=== PATIENT | female | born 1950 | race African-American/Black ===

== ENCOUNTER 2021-08-22 10:45 | Inpatient (IN) | payer MEDICAID ==
[2021-08-21 20:00] VITALS: BP 78/54
[~2021-08-22] VITALS: Ht 160 cm; Wt 60.8 kg
[2021-08-22] VITALS (22 sets, daily range): BP systolic 78–109; BP diastolic 44–71
[~2021-08-22 10:45] MED LIST: AC10R PR; LEVVL SQ; MIDO10TA GT; MOM MT; MULT-230 GT; POTA-79 GT; TOPUD GT
[2021-08-22] MEDS ORDERED: SODIUM CHLORIDE 0.9% 1,000 ML IV ONE (11:00)
[2021-08-22] MEDS ORDERED: SODIUM CHLORIDE 0.9% 1000ML BAG (SEPSIS BOLUS) IV ONE (11:00)
[2021-08-22] MEDS ORDERED: VANCOMYCIN 1 G PREMIX 200 ML IV ONE (11:00)
[2021-08-22] MEDS ORDERED: PIPERACILLIN/TAZ 3.375G PREMIX 50 ML IV ONE (11:00)
[2021-08-22 11:20] LABS: CHLORIDE 128 mEq/L (98-107)
[2021-08-22 11:23] LABS: HEMATOCRIT. 45.1 % (36.0-48.0); HEMOGLOBIN. 14.6 g/dL (12.0-16.0); MEAN CORPUSCULAR HEMOGLOBIN 31.5 pg (28.0-32.0); MEAN CORPUSCULAR VOLUME 97.2 fL (81.0-99.0); MEAN PLATELET VOLUME 11.4 fl (7.4-10.4); PLATELET 178 x1000/uL (130-400); RED BLOOD CELL COUNT 4.64 mill/uL (4.2-5.4); RED CELL DISTRIBUTION WIDTH 14.9 % (11.6-14.6)
[2021-08-22] MEDS ORDERED: CALCIUM CHLORIDE 1GM/10ML SYR IV ONE (11:45)
[2021-08-22] MEDS ORDERED: ALBUTEROL (0.083%) 2.5MG/3ML NEB HHN ONE (11:45)
[2021-08-22] MEDS ORDERED: DEXTROSE 50% WATER 50ML SYRINGE IV ONE (11:45)
[2021-08-22] MEDS ORDERED: INSULIN REGULAR (HUMULIN R) 300UNITS/3ML VIAL IV ONE (11:45)
[2021-08-22] MEDS ORDERED: SODIUM BICARBONATE 8.4% 1 MEQ/ML 50ML SYR IV ONE (11:45)
[2021-08-22] MEDS ORDERED: ACETAMINOPHEN 650MG SUPP PR ONE (12:30)
[2021-08-22 12:36] LABS: PLATELET ESTIMATE NORMAL
[2021-08-22] MEDS ORDERED: FENTANYL CITRATE/PF 500 MCG in SODIUM CHLORIDE 0.9% 40 ML IV STA (12:40)
[2021-08-22] MEDS ORDERED: ETOMIDATE 2MG/ML 10ML VIAL IV ONE (12:45)
[2021-08-22] MEDS ORDERED: SUCCINYLCHOLINE CHLORIDE 200MG/10ML IV ONE (12:45)
[2021-08-22] MEDS ORDERED: MIDAZOLAM HCL 100 MG in DEXT 5% WATER 80 ML IV ONE (12:45)
[2021-08-22] MEDS ORDERED: FENTANYL CITRATE/PF 50MCG/ML 2ML VIAL IV ONE (12:45)
[2021-08-22 12:47] LABS: BG BASE EXCESS 2.8 mmol/L (-2.0-2.0); BG CARBOXYHEMOGLOBIN 0.3 % (0.5-1.5); BG DEOXYHEMOGLOBIN 2.1 % (0.0-5.0); BG FRACTION INSPIRED OXYGEN 100; BG HCO3 ACT 25.8 mmol/L (22.0-26.0); BG METHEMOGLOBIN 0.2 % (0.0-1.5); BG OXYGEN SATURATION 97.9 % (92.0-98.5); BG OXYHEMOGLOBIN 97.4 % (94.0-97.0); BG PCO2 34.1 mmHg (35.0-45.0); BG PH 7.496 (7.350-7.450); BG PO2 122.6 mmHg (75.0-100.0); BG SAMPLE SITE LEFT RADIAL; BG TOTAL HEMOGLOBIN 12.1 g/dL (12.0-18.0); BG VENT MODE MASK - NRB
[2021-08-22] MEDS ORDERED: MIDAZOLAM HCL 100 MG in SODIUM CHLORIDE 0.9% 80 ML IV ONE (13:00)
[2021-08-22] MEDS ORDERED: FENTANYL CITRATE 2,500 MCG in SODIUM CHLORIDE 0.9% 200 ML IV PRN (13:15)
[2021-08-22] MEDS ORDERED: MIDAZOLAM 100MG/100ML PMX 100 ML IV PRN (13:15)
[2021-08-22 14:55] LABS: INR 1.1; PROTHROMBIN TIME 11.3 sec (9.6-11.0)
[2021-08-22] MEDS ORDERED: PHENYLEPHRINE 50 MG in DEXT 5% WATER 245 ML IV PRN (15:15)
[2021-08-22] MEDS ORDERED: IPRATROPIUM/ALBUTEROL 0.5-3(2.5)MG/3ML NEB HHN PRN ×2 (16:00→17:30)
[2021-08-22] MEDS ORDERED: ACETAMINOPHEN 650MG/20.3ML UDC GT PRN ×2 (16:00)
[2021-08-22] MEDS ORDERED: ONDANSETRON HCL 4MG/2ML INJ IV PRN (16:00)
[2021-08-22] MEDS: PANTOPRAZOLE SODIUM 40 MG/VIAL IV SCH (16:13)
[2021-08-22] MEDS ORDERED: AMIKACIN SULFATE 500 MG in SODIUM CHLORIDE 0.9% 100 ML IV NR (17:00)
[2021-08-22 17:02] LABS: CHLORIDE 132 mEq/L (98-107)
[2021-08-22 17:04] LABS: CLARITY URINE CLOUDY (CLEAR); COLOR URINE DARK YELLOW (YELLOW); KETONES URINE TRACE (NEGATIVE); LEUKOCYTE ESTERASE URINE TRACE (NEGATIVE); NITRITE URINE NEGATIVE (NEGATIVE); OCCULT BLOOD URINE TRACE (NEGATIVE); PROTEIN URINE 1+ (NEGATIVE); SPECIFIC GRAVITY URINE 1.027 (1.005-1.030)
[2021-08-22 17:08] LABS: LDL CHOLESTEROL 45 mg/dL (5-100)
[2021-08-22 17:10] LABS: CREATINE KINASE 78 IU/L (26-192); HDL CHOLESTEROL 24 mg/dL (40-59)
[2021-08-22 17:10] LABS: BG BASE EXCESS -0.4 mmol/L (-2.0-2.0); BG CARBOXYHEMOGLOBIN 0.3 % (0.5-1.5); BG FRACTION INSPIRED OXYGEN 100; BG HCO3 ACT 20.8 mmol/L (22.0-26.0); BG METHEMOGLOBIN 0.4 % (0.0-1.5); BG OXYHEMOGLOBIN 98.3 % (94.0-97.0); BG PH 7.539 (7.350-7.450); BG PO2 242.7 mmHg (75.0-100.0); BG SAMPLE SITE RIGHT RADIAL; BG TOTAL HEMOGLOBIN 11.8 g/dL (12.0-18.0); BG VENT MODE VENT - AC
[2021-08-22 17:12] LABS: CREATINE KINASE MB FRACTION < 1.0 ng/mL (0.5-3.6)
[2021-08-22 17:26] LABS: *AMPHETAMINES SCREEN URINE NEGATIVE (NEGATIVE); *BARBITURATES SCREEN URINE NEGATIVE (NEGATIVE); *BENZODIAZEPINES SCREEN URINE NEGATIVE (NEGATIVE); *COCAINE SCREEN URINE NEGATIVE (NEGATIVE)
[2021-08-22 17:27] LABS: CANNABINOID URINE SCREEN NEGATIVE (NEGATIVE); METHADONE URINE SCREEN NEGATIVE (NEGATIVE); OPIATES URINE SCREEN NEGATIVE (NEGATIVE); PHENCYCLIDINE URINE SCREEN NEGATIVE (NEGATIVE)
[2021-08-22] MEDS ORDERED: MIDAZOLAM HCL 100 MG in SODIUM CHLORIDE 0.9% 80 ML IV PRN (17:30)
[2021-08-22] MEDS: MEROPENEM 500 MG in SODIUM CHLORIDE 0.9% 50 ML IV SCH (17:34)
[2021-08-22] MEDS ORDERED: VANCOMYCIN 750 MG PREMIX 150 ML IV SCH (20:00)
[2021-08-22] MEDS: SODIUM CHLORIDE 0.45% 1,000 ML IV SCH (20:06)
[2021-08-22] MEDS: IPRATROPIUM/ALBUTEROL 0.5-3(2.5)MG/3ML NEB HHN SCH (20:30)
[2021-08-22] MEDS ORDERED: PIPERACILLIN/TAZOBACTAM 3.375 G in DEXTROSE 5% WATER 50 ML IV SCH (22:00)
[2021-08-22] MEDS ORDERED: DEXTROSE 50% WATER 50ML SYRINGE IV PRN (23:45)
[2021-08-22] MEDS: BLOOD SUGAR DIAGNOSTIC STRIP TEST SCH (23:59)
[2021-08-22] MEDS: INSULIN LISPRO 100 UNITS/ML SUBCUT SCH (23:59)
[2021-08-23] VITALS (105 sets, daily range): BP systolic 77–125; BP diastolic 42–83
[2021-08-23] MEDS: IPRATROPIUM/ALBUTEROL 0.5-3(2.5)MG/3ML NEB HHN SCH ×4 (00:50→20:53)
[2021-08-23] MEDS: MEROPENEM 500 MG in SODIUM CHLORIDE 0.9% 50 ML IV SCH ×3 (02:45→17:30)
[2021-08-23] MEDS: PHENYLEPHRINE 50 MG in DEXT 5% WATER 245 ML IV PRN ×2 (02:45→15:27)
[2021-08-23] MEDS: SODIUM CHLORIDE 0.45% 1,000 ML IV SCH ×2 (05:35→15:28)
[2021-08-23] MEDS: INSULIN LISPRO 100 UNITS/ML SUBCUT SCH ×3 (05:36→17:30)
[2021-08-23] MEDS: BLOOD SUGAR DIAGNOSTIC STRIP TEST SCH ×3 (05:36→17:30)
[2021-08-23 05:57] LABS: BASOPHILS % 0.6 % (0.0-2.0); EOSINOPHILS % 1.5 % (0.0-5.0); HEMATOCRIT. 32.9 % (36.0-48.0); HEMOGLOBIN. 10.7 g/dL (12.0-16.0); MEAN CORPUSCULAR HEMOGLOBIN 31.5 pg (28.0-32.0); MEAN CORPUSCULAR VOLUME 97.4 fL (81.0-99.0); MONOCYTES % 2.2 % (2.0-8.0); NEUTROPHILS % 86.7 % (40.0-76.0); PLATELET 143 x1000/uL (130-400); RED BLOOD CELL COUNT 3.38 mill/uL (4.2-5.4)
[2021-08-23 06:00] LABS: CHLORIDE 132 mEq/L (98-107)
[2021-08-23] MEDS: PANTOPRAZOLE SODIUM 40 MG/VIAL IV SCH (08:48)
[2021-08-23 08:56] LABS: BG BASE EXCESS 2.4 mmol/L (-2.0-2.0); BG CARBOXYHEMOGLOBIN 0.3 % (0.5-1.5); BG DEOXYHEMOGLOBIN 2.5 % (0.0-5.0); BG HCO3 ACT 24.4 mmol/L (22.0-26.0); BG METHEMOGLOBIN 0.3 % (0.0-1.5); BG OXYGEN SATURATION 97.5 % (92.0-98.5); BG OXYHEMOGLOBIN 96.9 % (94.0-97.0); BG PCO2 29.2 mmHg (35.0-45.0); BG PO2 98.6 mmHg (75.0-100.0); BG SAMPLE SITE RIGHT RADIAL; BG TOTAL HEMOGLOBIN 10.8 g/dL (12.0-18.0); BG VENT MODE VENT - AC
[2021-08-23] MEDS ORDERED: POLYETHYLENE GLYCOL 3350 (17GM) 1 DOSE PACK PO NR (10:00)
[2021-08-23] MEDS ORDERED: BISACODYL 10MG SUPP PR PRN (10:00)
[2021-08-23] MEDS: VANCOMYCIN 750 MG PREMIX 150 ML IV SCH (12:24)
[2021-08-23] MEDS ORDERED: MORPHINE SULFATE 2 MG/ML CPJ (NOT FOR IM USE) IV PRN (16:30)
[2021-08-23] MEDS ORDERED: NOREPINEPHRINE 32 MG in DEXT 5% WATER 218 ML IV PRN (16:30)
[2021-08-23] MEDS ORDERED: NALOXONE HCL 0.4MG/ML VIAL IV PRN (16:45)
[2021-08-23] MEDS ORDERED: IOHEXOL-350 100 ML BOTTLE ONE (23:04)
[2021-08-24] VITALS (90 sets, daily range): BP systolic 85–144; BP diastolic 40–120
[2021-08-24] MEDS: IPRATROPIUM/ALBUTEROL 0.5-3(2.5)MG/3ML NEB HHN SCH ×4 (01:33→20:22)
[2021-08-24] MEDS: MEROPENEM 500 MG in SODIUM CHLORIDE 0.9% 50 ML IV SCH ×3 (01:34→17:12)
[2021-08-24] MEDS: PHENYLEPHRINE 50 MG in DEXT 5% WATER 245 ML IV PRN (02:03)
[2021-08-24] MEDS: SODIUM CHLORIDE 0.45% 1,000 ML IV SCH (04:23)
[2021-08-24] MEDS: BLOOD SUGAR DIAGNOSTIC STRIP TEST SCH ×4 (05:39→17:00)
[2021-08-24] MEDS: VANCOMYCIN 750 MG PREMIX 150 ML IV SCH ×2 (05:39→17:12)
[2021-08-24] MEDS: INSULIN LISPRO 100 UNITS/ML SUBCUT SCH ×4 (05:41→17:11)
[2021-08-24 05:56] LABS: BASOPHILS % 0.1 % (0.0-2.0); HEMATOCRIT. 28.1 % (36.0-48.0); HEMOGLOBIN. 9.2 g/dL (12.0-16.0); LYMPHOCYTES % 8.1 % (20.0-50.0); MEAN CORPUSCULAR HEMOGLOBIN 32.1 pg (28.0-32.0); MEAN CORPUSCULAR VOLUME 97.8 fL (81.0-99.0); MEAN PLATELET VOLUME 12.2 fl (7.4-10.4); NEUTROPHILS % 87.8 % (40.0-76.0); PLATELET 94 x1000/uL (130-400); RED BLOOD CELL COUNT 2.87 mill/uL (4.2-5.4); RED CELL DISTRIBUTION WIDTH 14.7 % (11.6-14.6)
[2021-08-24 06:02] LABS: CHLORIDE 119 mEq/L (98-107)
[2021-08-24 06:08] LABS: PHOSPHORUS 2.2 mg/dL (2.5-4.9)
[2021-08-24 06:11] LABS: VANCOMYCIN TROUGH 10.3 ug/mL (5.0-10.0)
[2021-08-24 08:49] LABS: BG BASE EXCESS 2.4 mmol/L (-2.0-2.0); BG CARBOXYHEMOGLOBIN 0.3 % (0.5-1.5); BG DEOXYHEMOGLOBIN 1.6 % (0.0-5.0); BG FRACTION INSPIRED OXYGEN 35; BG HCO3 ACT 25.3 mmol/L (22.0-26.0); BG METHEMOGLOBIN 0.1 % (0.0-1.5); BG OXYGEN SATURATION 98.4 % (92.0-98.5); BG PCO2 32.6 mmHg (35.0-45.0); BG PH 7.507 (7.350-7.450); BG PO2 140.8 mmHg (75.0-100.0); BG SAMPLE SITE LEFT RADIAL; BG TOTAL HEMOGLOBIN 9.8 g/dL (12.0-18.0); BG TOTAL RESPIRATORY RATE 15 b/min; BG VENT MODE VENT - AC
[2021-08-24] MEDS ORDERED: DEXTROSE 5% WATER 1,000 ML IV SCH (09:00)
[2021-08-24] MEDS: POLYETHYLENE GLYCOL 3350 (17GM) 1 DOSE PACK PO SCH (09:00)
[2021-08-24] MEDS ORDERED: POTASSIUM CHLORIDE INJ 60 MEQ in DEXT 5% WATER 500 ML IV SCH (09:00)
[2021-08-24] MEDS: ZINC SULFATE 220 MG ( 50 ) CAPSULE GT SCH (09:20)
[2021-08-24] MEDS: PANTOPRAZOLE SODIUM 40 MG/VIAL IV SCH (09:20)
[2021-08-24] MEDS: ASCORBIC ACID 500 MG TABLET GT SCH (09:20)
[2021-08-24] MEDS ORDERED: POTASSIUM PHOS,M-BASIC-D-BASIC 15 MMOL in DEXT 5% WATER 245 ML IV NR (10:30)
[2021-08-25] VITALS (45 sets, daily range): BP systolic 93–139; BP diastolic 43–77
[2021-08-25] MEDS: BLOOD SUGAR DIAGNOSTIC STRIP TEST SCH ×5 (00:20→23:50)
[2021-08-25] MEDS: IPRATROPIUM/ALBUTEROL 0.5-3(2.5)MG/3ML NEB HHN SCH ×4 (00:25→20:19)
[2021-08-25] MEDS: MEROPENEM 500 MG in SODIUM CHLORIDE 0.9% 50 ML IV SCH ×3 (03:20→17:22)
[2021-08-25] MEDS: INSULIN LISPRO 100 UNITS/ML SUBCUT SCH ×5 (05:49→23:50)
[2021-08-25] MEDS: VANCOMYCIN 750 MG PREMIX 150 ML IV SCH ×2 (05:49→18:43)
[2021-08-25 06:03] LABS: BASOPHILS % 0.2 % (0.0-2.0); CHLORIDE 112 mEq/L (98-107); EOSINOPHILS % 1.9 % (0.0-5.0); HEMATOCRIT. 26.1 % (36.0-48.0); HEMOGLOBIN. 8.8 g/dL (12.0-16.0); LYMPHOCYTES % 8.8 % (20.0-50.0); MEAN CORPUSCULAR HEMOGLOBIN 32.2 pg (28.0-32.0); MEAN PLATELET VOLUME 12.4 fl (7.4-10.4); MONOCYTES % 5.1 % (2.0-8.0); PLATELET 78 x1000/uL (130-400); RED BLOOD CELL COUNT 2.74 mill/uL (4.2-5.4); RED CELL DISTRIBUTION WIDTH 14.4 % (11.6-14.6)
[2021-08-25 08:06] LABS: BG BASE EXCESS 1.9 mmol/L (-2.0-2.0); BG CARBOXYHEMOGLOBIN 0.3 % (0.5-1.5); BG DEOXYHEMOGLOBIN 2.1 % (0.0-5.0); BG HCO3 ACT 24.9 mmol/L (22.0-26.0); BG OXYGEN SATURATION 97.9 % (92.0-98.5); BG OXYHEMOGLOBIN 97.6 % (94.0-97.0); BG PCO2 32.3 mmHg (35.0-45.0); BG PH 7.504 (7.350-7.450); BG PO2 108.1 mmHg (75.0-100.0); BG SAMPLE SITE LEFT RADIAL; BG TOTAL HEMOGLOBIN 9.3 g/dL (12.0-18.0); BG VENT MODE VENT - SIMV
[2021-08-25] MEDS: ASCORBIC ACID 500 MG TABLET GT SCH (09:20)
[2021-08-25] MEDS: PANTOPRAZOLE SODIUM 40 MG/VIAL IV SCH (09:20)
[2021-08-25] MEDS: POLYETHYLENE GLYCOL 3350 (17GM) 1 DOSE PACK PO SCH (09:20)
[2021-08-25] MEDS: ZINC SULFATE 220 MG ( 50 ) CAPSULE GT SCH (09:20)
[2021-08-25] MEDS ORDERED: POTASSIUM CHLORIDE INJ 40 MEQ in DEXT 5% WATER 250 ML IV ONE (09:45)
[2021-08-25 10:57] LABS: BG BASE EXCESS 1.4 mmol/L (-2.0-2.0); BG CARBOXYHEMOGLOBIN 0.1 % (0.5-1.5); BG DEOXYHEMOGLOBIN 5.4 % (0.0-5.0); BG HCO3 ACT 22.5 mmol/L (22.0-26.0); BG METHEMOGLOBIN 0.1 % (0.0-1.5); BG OXYGEN SATURATION 94.6 % (92.0-98.5); BG OXYHEMOGLOBIN 94.4 % (94.0-97.0); BG PH 7.556 (7.350-7.450); BG PO2 69.9 mmHg (75.0-100.0); BG SAMPLE SITE RIGHT RADIAL; BG TOTAL HEMOGLOBIN 12.2 g/dL (12.0-18.0); BG VENT MODE VENT - CPAP
[2021-08-25] MEDS: KCL 20MEQ/100ML PREMIX 100 ML IV SCH ×2 (11:51→14:20)
[2021-08-26] VITALS (27 sets, daily range): BP systolic 89–131; BP diastolic 45–79
[2021-08-26] MEDS: IPRATROPIUM/ALBUTEROL 0.5-3(2.5)MG/3ML NEB HHN SCH ×4 (00:31→20:23)
[2021-08-26] MEDS: MEROPENEM 500 MG in SODIUM CHLORIDE 0.9% 50 ML IV SCH ×3 (01:38→17:29)
[2021-08-26] MEDS: INSULIN LISPRO 100 UNITS/ML SUBCUT SCH ×3 (05:27→17:29)
[2021-08-26] MEDS: BLOOD SUGAR DIAGNOSTIC STRIP TEST SCH ×3 (05:27→17:29)
[2021-08-26] MEDS: VANCOMYCIN 750 MG PREMIX 150 ML IV SCH (05:27)
[2021-08-26 06:17] LABS: CHLORIDE 113 mEq/L (98-107)
[2021-08-26 06:29] LABS: PHOSPHORUS 2.7 mg/dL (2.5-4.9)
[2021-08-26] MEDS: ASCORBIC ACID 500 MG TABLET GT SCH (08:38)
[2021-08-26] MEDS: ZINC SULFATE 220 MG ( 50 ) CAPSULE GT SCH (08:38)
[2021-08-26] MEDS: POLYETHYLENE GLYCOL 3350 (17GM) 1 DOSE PACK PO SCH (08:39)
[2021-08-26] MEDS: PANTOPRAZOLE SODIUM 40 MG/VIAL IV SCH (08:39)
[2021-08-27] VITALS (13 sets, daily range): BP systolic 111–134; BP diastolic 64–78
[2021-08-27] MEDS: MEROPENEM 500 MG in SODIUM CHLORIDE 0.9% 50 ML IV SCH ×3 (01:22→17:22)
[2021-08-27] MEDS: IPRATROPIUM/ALBUTEROL 0.5-3(2.5)MG/3ML NEB HHN SCH ×3 (04:29→14:11)
[2021-08-27 06:57] LABS: CHLORIDE 110 mEq/L (98-107)
[2021-08-27] MEDS: INSULIN LISPRO 100 UNITS/ML SUBCUT SCH ×4 (07:00→17:23)
[2021-08-27] MEDS: BLOOD SUGAR DIAGNOSTIC STRIP TEST SCH ×4 (07:00→17:22)
[2021-08-27 07:08] LABS: HEMATOCRIT. 28.4 % (36.0-48.0); HEMOGLOBIN. 9.6 g/dL (12.0-16.0); MEAN CORPUSCULAR HEMOGLOBIN 32.2 pg (28.0-32.0); MEAN CORPUSCULAR VOLUME 94.7 fL (81.0-99.0); MEAN PLATELET VOLUME 10.4 fl (7.4-10.4); PLATELET 119 x1000/uL (130-400); RED CELL DISTRIBUTION WIDTH 14.2 % (11.6-14.6)
[2021-08-27] MEDS: ASCORBIC ACID 500 MG TABLET GT SCH (09:10)
[2021-08-27] MEDS: POLYETHYLENE GLYCOL 3350 (17GM) 1 DOSE PACK PO SCH (09:10)
[2021-08-27] MEDS: ZINC SULFATE 220 MG ( 50 ) CAPSULE GT SCH (09:10)
[2021-08-27] MEDS: PANTOPRAZOLE SODIUM 40 MG/VIAL IV SCH (09:10)
[2021-08-27 12:10] LABS: PLATELET ESTIMATE SLIGHTLY DECREASED
[2021-08-28] VITALS (10 sets, daily range): BP systolic 105–124; BP diastolic 61–79
[2021-08-28] MEDS: BLOOD SUGAR DIAGNOSTIC STRIP TEST SCH ×3 (00:30→12:00)
[2021-08-28] MEDS: IPRATROPIUM/ALBUTEROL 0.5-3(2.5)MG/3ML NEB HHN SCH ×3 (01:30→14:12)
[2021-08-28] MEDS: INSULIN LISPRO 100 UNITS/ML SUBCUT SCH ×3 (06:00→12:00)
[2021-08-28 06:47] LABS: CHLORIDE 107 mEq/L (98-107)
[2021-08-28 06:48] LABS: HEMATOCRIT. 31.3 % (36.0-48.0); HEMOGLOBIN. 10.3 g/dL (12.0-16.0); MEAN CORPUSCULAR HEMOGLOBIN 31.5 pg (28.0-32.0); MEAN CORPUSCULAR VOLUME 95.3 fL (81.0-99.0); PLATELET 150 x1000/uL (130-400); RED BLOOD CELL COUNT 3.28 mill/uL (4.2-5.4); RED CELL DISTRIBUTION WIDTH 14.2 % (11.6-14.6)
[2021-08-28] MEDS: ZINC SULFATE 220 MG ( 50 ) CAPSULE GT SCH (08:25)
[2021-08-28] MEDS: ASCORBIC ACID 500 MG TABLET GT SCH (08:25)
[2021-08-28] MEDS: PANTOPRAZOLE SODIUM 40 MG/VIAL IV SCH (08:25)
[2021-08-28] MEDS: POLYETHYLENE GLYCOL 3350 (17GM) 1 DOSE PACK PO SCH (08:26)
[2021-08-28 14:10] LABS: PLATELET ESTIMATE NORMAL
== END 2021-08-28 18:10 | DRG 720 ==
LOC: ER 10:45 → MICUNO 12:54 → EDBEDREQSVC 12:59 → EDBEDREQ 12:59 → ENRESERV 17:15 → 5EST 08-26 11:50
PROVIDERS: ADMIT Internal Medicine; ATTEND Internal Medicine
PROC: 5A1945Z Respiratory Ventilation, 24-96 Consecutive Hours (ICD-10-PCS; principal; 2021-08-22)
PROC: 0BH17EZ Insertion of Endotracheal Airway into Trachea, Via Natural or Artificial Opening (ICD-10-PCS; 2021-08-22)
PROC: 02H633Z Insertion of Infusion Device into Right Atrium, Percutaneous Approach (ICD-10-PCS; 2021-08-22)
PROC: B548ZZA Ultrasonography of Superior Vena Cava, Guidance (ICD-10-PCS; 2021-08-22)
DX: A41.9 Sepsis, unspecified organism (principal); J96.01 Acute respiratory failure with hypoxia; N17.0 Acute kidney failure with tubular necrosis; R57.1 Hypovolemic shock; R65.21 Severe sepsis with septic shock; E44.0 Moderate protein-calorie malnutrition; G92.8 Other toxic encephalopathy; J18.9 Pneumonia, unspecified organism; I27.20 Pulmonary hypertension, unspecified; D69.6 Thrombocytopenia, unspecified; I21.A1 Myocardial infarction type 2; E11.22 Type 2 diabetes mellitus with diabetic chronic kidney disease; D64.9 Anemia, unspecified; E11.65 Type 2 diabetes mellitus with hyperglycemia; G93.89 Other specified disorders of brain; E87.5 Hyperkalemia; N18.1 Chronic kidney disease, stage 1; N39.0 Urinary tract infection, site not specified; E86.9 Volume depletion, unspecified; E87.0 Hyperosmolality and hypernatremia; E87.6 Hypokalemia; F03.90 Unspecified dementia, unspecified severity, without behavioral disturbance, psychotic disturbance, mood disturbance, and anxiety; I13.0 Hypertensive heart and chronic kidney disease with heart failure and stage 1 through stage 4 chronic kidney disease, or unspecified chronic kidney disease; K21.9 Gastro-esophageal reflux disease without esophagitis; R74.01 Elevation of levels of liver transaminase levels; R80.9 Proteinuria, unspecified; R81 Glycosuria; I25.10 Atherosclerotic heart disease of native coronary artery without angina pectoris; E78.1 Pure hyperglyceridemia; I50.30 Unspecified diastolic (congestive) heart failure; K80.20 Calculus of gallbladder without cholecystitis without obstruction; K56.41 Fecal impaction; R13.10 Dysphagia, unspecified; Z20.822 Contact with and (suspected) exposure to COVID-19; Z78.1 Physical restraint status; Q25.47 Right aortic arch; Z68.23 Body mass index [BMI] 23.0-23.9, adult; Z86.73 Personal history of transient ischemic attack (TIA), and cerebral infarction without residual deficits; Z86.79 Personal history of other diseases of the circulatory system; Z93.1 Gastrostomy status; Z74.01 Bed confinement status
CPT/HCPCS: 36415; 36600; 71045; 71250; 71275; 74176; 76937; 80048; 80053; 80061; 80076; 80202; 80305; 81003; 82140; 82270; 82375; 82550; 82553; 82805; 82962; 83036; 83605; 83735; 84100; 84134; 84145; 84443; 84484; 85025; 87070; 87426; 93005; 93306; 93970; 94003; 94640; 99291; A6261; C1725; C9113; J0278; J1815; J2185; J2250; J2370; J2543; J3010; J3370; J3480; J3490; J7030; J7040; J7050; J7060; J7070; Q9967

== ENCOUNTER 2023-02-13 16:16 | Inpatient (IN) | payer MEDICAID ==
[~2023-02-13] VITALS: Ht 154.9 cm; Wt 60.0 kg
[~2023-02-13 16:16] MED LIST changes: +AMIN30LI2 GT; +ASCO500C18 GT; +ASPI-1160 MT; +BISA10SU62 RC; +FEO PR; +FISH GT; +INSU100I41; +KEPPSOL MT; +NYST1POW11 MC; +OMEP10CA5 MT; +POTA-354 GT; -POTA-79 GT
[2023-02-13] MEDS ORDERED: OCTREOTIDE ACETATE 50 MCG/ML 1ML IV STA (17:03)
[2023-02-13] MEDS ORDERED: PANTOPRAZOLE SODIUM 40 MG/VIAL IV STA (17:03)
[2023-02-13] MEDS ORDERED: SODIUM CHLORIDE 0.9% 500 ML IV ONE (17:15)
[2023-02-13] MEDS ORDERED: VANCOMYCIN 1G PREMIX 200 ML IV ONE (18:30)
[2023-02-13] MEDS ORDERED: PIPERACILLIN/TAZ 3.375G PREMIX 50 ML IV ONE (18:30)
[2023-02-13 18:45] LABS: BASOPHILS % 0.4 % (0.0-2.0); EOSINOPHILS % 0.1 % (0.0-5.0); HEMATOCRIT. 22.3 % (36.0-48.0); HEMOGLOBIN. 7.2 g/dL (12.0-16.0); LYMPHOCYTES % 10.5 % (20.0-50.0); MEAN CORPUSCULAR HEMOGLOBIN 30.3 pg (28.0-32.0); MEAN CORPUSCULAR VOLUME 93.4 fL (81.0-99.0); MEAN PLATELET VOLUME 8.8 fl (7.4-10.4); MONOCYTES % 6.6 % (2.0-8.0); NEUTROPHILS % 82.4 % (40.0-76.0); PLATELET 270 x1000/uL (130-400); RED BLOOD CELL COUNT 2.38 mill/uL (4.2-5.4); RED CELL DISTRIBUTION WIDTH 14.8 % (11.6-14.6)
[2023-02-13 18:48] LABS: CHLORIDE 113 mEq/L (98-107)
[2023-02-13] MEDS ORDERED: PANTOPRAZOLE SODIUM 40 MG/VIAL IV NR (19:15)
[2023-02-13 19:24] LABS: INR 1.1; PARTIAL THROMBOPLASTIN TIME 22.9 sec (23.4-31.0); PROTHROMBIN TIME 12.1 sec (9.6-11.0)
[2023-02-13 22:30] VITALS: BP 92/60
[2023-02-13 22:45] VITALS: BP 80/58
[2023-02-13 23:00] VITALS: BP_SYST 79; BP_SYST 91; BP_DIAS 50; BP_DIAS 63
[2023-02-13] MEDS: PHENYLEPHRINE 100 MG in DEXT 5% WATER 240 ML IV PRN (23:00)
[2023-02-13] MEDS: DEXT 5%/0.9% NACL 1,000 ML IV SCH (23:00)
[2023-02-13 23:15] VITALS: BP 87/64
[2023-02-13 23:30] VITALS: BP 94/66
[2023-02-13 23:45] VITALS: BP 103/51
[2023-02-14] VITALS (91 sets, daily range): BP systolic 44–251; BP diastolic 16–114
[2023-02-14 00:18] LABS: CLARITY URINE TURBID (CLEAR); COLOR URINE YELLOW (YELLOW); KETONES URINE NEGATIVE (NEGATIVE); LEUKOCYTE ESTERASE URINE 3+ (NEGATIVE); NITRITE URINE NEGATIVE (NEGATIVE); OCCULT BLOOD URINE 3+ (NEGATIVE); PROTEIN URINE 2+ (NEGATIVE); SPECIFIC GRAVITY URINE 1.021 (1.005-1.030)
[2023-02-14 05:30] LABS: HEMATOCRIT. 30.9 % (36.0-48.0); HEMOGLOBIN. 10.3 g/dL (12.0-16.0); MEAN CORPUSCULAR HEMOGLOBIN 31.7 pg (28.0-32.0); MEAN CORPUSCULAR VOLUME 94.7 fL (81.0-99.0); MEAN PLATELET VOLUME 9.2 fl (7.4-10.4); PLATELET 254 x1000/uL (130-400); RED BLOOD CELL COUNT 3.26 mill/uL (4.2-5.4); RED CELL DISTRIBUTION WIDTH 14.4 % (11.6-14.6)
[2023-02-14 05:37] LABS: CHLORIDE 113 mEq/L (98-107)
[2023-02-14 05:48] LABS: TOTAL IRON BINDING CAPACITY 217 ug/dL (250-450)
[2023-02-14] MEDS: PANTOPRAZOLE SODIUM 40 MG/VIAL IV SCH ×2 (05:50→18:00)
[2023-02-14 05:57] LABS: PROTHROMBIN TIME 11.2 sec (9.6-11.0)
[2023-02-14 06:13] LABS: VITAMIN B12 SERUM 1728 pg/mL (211-911)
[2023-02-14] MEDS ORDERED: DEXTROSE 50% WATER 50ML SYRINGE IV PRN (10:15)
[2023-02-14 10:58] LABS: PLATELET ESTIMATE NORMAL
[2023-02-14] MEDS: DEXT 5%/0.9% NACL 1,000 ML IV SCH (12:38)
[2023-02-14] MEDS: VANCOMYCIN 500MG PREMIX 100 ML IV SCH ×2 (12:39→23:28)
[2023-02-14] MEDS: PIPERACILLIN/TAZOBACTAM 3.375 G in DEXTROSE 5% WATER 50 ML IV SCH ×2 (12:39→21:12)
[2023-02-14] MEDS: BLOOD SUGAR DIAGNOSTIC STRIP TEST SCH ×3 (12:50→21:00)
[2023-02-14] MEDS: LEVETIRACETAM 500MG/5ML CUP GT SCH (17:11)
[2023-02-14] MEDS: INSULIN LISPRO 100 UNITS/ML SUBCUT SCH ×3 (17:12→21:13)
[2023-02-14] MEDS ORDERED: NALOXONE HCL 0.4MG/ML VIAL IV PRN (17:30)
[2023-02-14] MEDS ORDERED: MORPHINE SULFATE 2 MG/ML CPJ (NOT FOR IM USE) IV PRN ×2 (17:30→18:45)
[2023-02-14 17:52] LABS: BG BASE EXCESS -11.9 mmol/L (-2.0-2.0); BG CARBOXYHEMOGLOBIN 0.3 % (0.5-1.5); BG FRACTION INSPIRED OXYGEN 100; BG HCO3 ACT 12.4 mmol/L (22.0-26.0); BG METHEMOGLOBIN 0.3 % (0.0-1.5); BG OXYHEMOGLOBIN 98.4 % (94.0-97.0); BG PH 7.332 (7.350-7.450); BG PO2 382.2 mmHg (75.0-100.0); BG SAMPLE SITE LEFT RADIAL; BG TOTAL HEMOGLOBIN 9.9 g/dL (12.0-18.0); BG VENT MODE MASK - NRB
[2023-02-14] MEDS ORDERED: SODIUM BICARBONATE 8.4% 1 MEQ/ML 50ML SYR IV NR ×2 (18:00)
[2023-02-14 19:16] LABS: BG CARBOXYHEMOGLOBIN 0.3 % (0.5-1.5); BG DEOXYHEMOGLOBIN 1.2 % (0.0-5.0); BG FRACTION INSPIRED OXYGEN 100; BG HCO3 ACT 20.7 mmol/L (22.0-26.0); BG METHEMOGLOBIN 0.4 % (0.0-1.5); BG OXYGEN SATURATION 98.8 % (92.0-98.5); BG OXYHEMOGLOBIN 98.1 % (94.0-97.0); BG PCO2 28.2 mmHg (35.0-45.0); BG PH 7.484 (7.350-7.450); BG PO2 295.3 mmHg (75.0-100.0); BG SAMPLE SITE LEFT RADIAL; BG TOTAL HEMOGLOBIN 9.4 g/dL (12.0-18.0); BG VENT MODE VENT - AC
[2023-02-14] MEDS: ACETAMINOPHEN 650MG/20.3ML UDC PO PRN (21:12)
[2023-02-14 21:13] LABS: HEMATOCRIT 25.5 % (36.0-48.0); HEMOGLOBIN 8.4 g/dL (12.0-16.0); MEAN CORPUSCULAR HEMOGLOBIN 31.4 pg (28.0-32.0); PLATELET 202 x1000/uL (130-400); RED BLOOD CELL COUNT 2.68 mill/uL (4.2-5.4); RED CELL DISTRIBUTION WIDTH 14.5 % (11.6-14.6)
[2023-02-14 21:23] LABS: CHLORIDE 118 mEq/L (98-107)
[2023-02-14] MEDS ORDERED: POTASSIUM CHLORIDE 20MEQ TABLET SR PO NR (23:45)
[2023-02-15] VITALS (64 sets, daily range): BP systolic 71–130; BP diastolic 45–79
[2023-02-15] MEDS: DEXT 5%/0.9% NACL 1,000 ML IV SCH ×2 (01:40→17:57)
[2023-02-15] MEDS: PIPERACILLIN/TAZOBACTAM 3.375 G in DEXTROSE 5% WATER 50 ML IV SCH ×3 (05:26→22:40)
[2023-02-15] MEDS: PANTOPRAZOLE SODIUM 40 MG/VIAL IV SCH ×2 (05:26→17:57)
[2023-02-15 06:28] LABS: BASOPHILS % 0.4 % (0.0-2.0); EOSINOPHILS % 0.5 % (0.0-5.0); HEMATOCRIT. 22.7 % (36.0-48.0); HEMOGLOBIN. 7.7 g/dL (12.0-16.0); LYMPHOCYTES % 7.4 % (20.0-50.0); MEAN CORPUSCULAR HEMOGLOBIN 32.3 pg (28.0-32.0); MEAN CORPUSCULAR VOLUME 94.9 fL (81.0-99.0); MEAN PLATELET VOLUME 9.1 fl (7.4-10.4); MONOCYTES % 7.5 % (2.0-8.0); NEUTROPHILS % 84.2 % (40.0-76.0); PLATELET 194 x1000/uL (130-400); RED BLOOD CELL COUNT 2.39 mill/uL (4.2-5.4)
[2023-02-15 06:43] LABS: INR 1.1; PROTHROMBIN TIME 11.8 sec (9.6-11.0)
[2023-02-15] MEDS: INSULIN LISPRO 100 UNITS/ML SUBCUT SCH ×4 (08:33→23:28)
[2023-02-15] MEDS: BLOOD SUGAR DIAGNOSTIC STRIP TEST SCH ×4 (08:34→23:27)
[2023-02-15] MEDS: LEVETIRACETAM 500MG/5ML CUP GT SCH ×2 (08:58→17:57)
[2023-02-15 08:59] LABS: BG BASE EXCESS 0.3 mmol/L (-2.0-2.0); BG CARBOXYHEMOGLOBIN 0.1 % (0.5-1.5); BG DEOXYHEMOGLOBIN 1.1 % (0.0-5.0); BG FRACTION INSPIRED OXYGEN 50; BG HCO3 ACT 22.9 mmol/L (22.0-26.0); BG METHEMOGLOBIN 0.4 % (0.0-1.5); BG OXYGEN SATURATION 98.9 % (92.0-98.5); BG OXYHEMOGLOBIN 98.4 % (94.0-97.0); BG PCO2 28.9 mmHg (35.0-45.0); BG PH 7.517 (7.350-7.450); BG PO2 203.1 mmHg (75.0-100.0); BG SAMPLE SITE RIGHT BRACHIAL; BG TOTAL HEMOGLOBIN 8.2 g/dL (12.0-18.0); BG VENT MODE VENT - AC
[2023-02-15] MEDS ORDERED: IPRATROPIUM/ALBUTEROL 0.5-3(2.5)MG/3ML NEB HHN PRN (12:30)
[2023-02-15] MEDS ORDERED: VANCOMYCIN 500MG PREMIX 100 ML IV SCH (18:00)
[2023-02-15] MEDS ORDERED: DEXT 5%/0.45% NACL 1000ML 1,000 ML IV ONE (20:15)
[2023-02-15] MEDS ORDERED: POTASSIUM CHLORIDE 20MEQ TABLET SR PO NR (20:15)
[2023-02-15] MEDS: ACETAMINOPHEN 650MG/20.3ML UDC PO PRN (20:40)
[2023-02-15] MEDS: IPRATROPIUM/ALBUTEROL 0.5-3(2.5)MG/3ML NEB HHN SCH (20:44)
[2023-02-15] MEDS: PHENYLEPHRINE 100 MG in DEXT 5% WATER 240 ML IV PRN (21:22)
[2023-02-15] MEDS: LORAZEPAM 2MG/ML CPJ IV PRN (23:17)
[2023-02-16] VITALS (99 sets, daily range): BP systolic 62–149; BP diastolic 45–94
[2023-02-16] MEDS: PHENYLEPHRINE 100 MG in DEXT 5% WATER 240 ML IV PRN (01:55)
[2023-02-16] MEDS: IPRATROPIUM/ALBUTEROL 0.5-3(2.5)MG/3ML NEB HHN SCH ×4 (02:13→20:25)
[2023-02-16 05:05] LABS: HEMATOCRIT. 26.5 % (36.0-48.0); MEAN CORPUSCULAR HEMOGLOBIN 31.3 pg (28.0-32.0); MEAN CORPUSCULAR VOLUME 92.3 fL (81.0-99.0); MEAN PLATELET VOLUME 8.9 fl (7.4-10.4); PLATELET 169 x1000/uL (130-400); RED BLOOD CELL COUNT 2.87 mill/uL (4.2-5.4); RED CELL DISTRIBUTION WIDTH 16.4 % (11.6-14.6)
[2023-02-16] MEDS: BLOOD SUGAR DIAGNOSTIC STRIP TEST SCH ×3 (05:07→17:16)
[2023-02-16] MEDS: PANTOPRAZOLE SODIUM 40 MG/VIAL IV SCH ×2 (05:11→17:14)
[2023-02-16] MEDS: PIPERACILLIN/TAZOBACTAM 3.375 G in DEXTROSE 5% WATER 50 ML IV SCH ×3 (05:11→23:04)
[2023-02-16] MEDS: INSULIN LISPRO 100 UNITS/ML SUBCUT SCH ×3 (05:12→17:16)
[2023-02-16 05:43] LABS: FERRITIN 166 ng/mL (10-291)
[2023-02-16] MEDS: LEVETIRACETAM 500MG/5ML CUP GT SCH ×2 (08:30→17:14)
[2023-02-16 08:39] LABS: BG BASE EXCESS -4.6 mmol/L (-2.0-2.0); BG CARBOXYHEMOGLOBIN 0.3 % (0.5-1.5); BG DEOXYHEMOGLOBIN 1.5 % (0.0-5.0); BG FRACTION INSPIRED OXYGEN 35; BG HCO3 ACT 18.9 mmol/L (22.0-26.0); BG METHEMOGLOBIN 0.3 % (0.0-1.5); BG OXYGEN SATURATION 98.5 % (92.0-98.5); BG OXYHEMOGLOBIN 97.9 % (94.0-97.0); BG PCO2 29.3 mmHg (35.0-45.0); BG PH 7.427 (7.350-7.450); BG PO2 145.8 mmHg (75.0-100.0); BG SAMPLE SITE LEFT RADIAL; BG TOTAL HEMOGLOBIN 9.9 g/dL (12.0-18.0); BG TOTAL RESPIRATORY RATE 20 b/min; BG VENT MODE VENT - AC
[2023-02-16 10:09] LABS: PLATELET ESTIMATE NORMAL
[2023-02-16] MEDS: DEXT 5%/0.9% NACL 1,000 ML IV SCH (15:39)
[2023-02-16 19:32] LABS: HEMATOCRIT 29.2 % (36.0-48.0); HEMOGLOBIN 9.8 g/dL (12.0-16.0)
[2023-02-17] VITALS (94 sets, daily range): BP systolic 86–139; BP diastolic 57–91
[2023-02-17] MEDS: IPRATROPIUM/ALBUTEROL 0.5-3(2.5)MG/3ML NEB HHN SCH ×4 (01:31→20:46)
[2023-02-17] MEDS: DEXT 5%/0.9% NACL 1,000 ML IV SCH ×2 (05:52→17:51)
[2023-02-17] MEDS: PANTOPRAZOLE SODIUM 40 MG/VIAL IV SCH ×2 (05:53→17:50)
[2023-02-17] MEDS: BLOOD SUGAR DIAGNOSTIC STRIP TEST SCH ×4 (05:53→17:28)
[2023-02-17] MEDS: PIPERACILLIN/TAZOBACTAM 3.375 G in DEXTROSE 5% WATER 50 ML IV SCH ×2 (05:53→13:26)
[2023-02-17] MEDS: INSULIN LISPRO 100 UNITS/ML SUBCUT SCH ×4 (06:07→17:51)
[2023-02-17 06:32] LABS: HEMATOCRIT. 25.1 % (36.0-48.0); HEMOGLOBIN. 8.7 g/dL (12.0-16.0); MEAN CORPUSCULAR HEMOGLOBIN 31.7 pg (28.0-32.0); MEAN CORPUSCULAR VOLUME 91.6 fL (81.0-99.0); PLATELET 161 x1000/uL (130-400); RED BLOOD CELL COUNT 2.74 mill/uL (4.2-5.4); RED CELL DISTRIBUTION WIDTH 16.8 % (11.6-14.6)
[2023-02-17 08:28] LABS: BG BASE EXCESS -5.3 mmol/L (-2.0-2.0); BG CARBOXYHEMOGLOBIN 0.3 % (0.5-1.5); BG DEOXYHEMOGLOBIN 3.4 % (0.0-5.0); BG FRACTION INSPIRED OXYGEN 35; BG HCO3 ACT 18.7 mmol/L (22.0-26.0); BG METHEMOGLOBIN 0.2 % (0.0-1.5); BG OXYGEN SATURATION 96.6 % (92.0-98.5); BG OXYHEMOGLOBIN 96.1 % (94.0-97.0); BG PCO2 30.5 mmHg (35.0-45.0); BG PH 7.405 (7.350-7.450); BG PO2 88.8 mmHg (75.0-100.0); BG SAMPLE SITE RIGHT RADIAL; BG TOTAL HEMOGLOBIN 8.6 g/dL (12.0-18.0); BG VENT MODE VENT - SIMV
[2023-02-17] MEDS: LEVETIRACETAM 500MG/5ML CUP GT SCH ×2 (09:28→17:50)
[2023-02-17] MEDS ORDERED: POTASSIUM CHLORIDE INJ 40 MEQ in DEXT 5% WATER 250 ML IV SCH (10:45)
[2023-02-17] MEDS: KCL 20MEQ/100ML X 2 FOR TOTAL KCL 40MEQ/200ML IV SCH ×2 (10:54→13:26)
[2023-02-17 12:31] LABS: PLATELET ESTIMATE NORMAL
[2023-02-17] MEDS: METOCLOPRAMIDE HCL 10MG/2ML VIAL IV SCH ×2 (15:01→22:34)
[2023-02-17] MEDS: LORAZEPAM 2MG/ML CPJ IV PRN (21:47)
[2023-02-17] MEDS: MEROPENEM 1,000 MG in SODIUM CHLORIDE 0.9% 100 ML IV SCH (21:48)
[2023-02-18] VITALS (89 sets, daily range): BP systolic 100–141; BP diastolic 34–113
[2023-02-18] MEDS: IPRATROPIUM/ALBUTEROL 0.5-3(2.5)MG/3ML NEB HHN SCH ×4 (02:08→20:25)
[2023-02-18 05:26] LABS: BASOPHILS % 0.2 % (0.0-2.0); EOSINOPHILS % 1.3 % (0.0-5.0); HEMATOCRIT. 23.6 % (36.0-48.0); HEMOGLOBIN. 8.1 g/dL (12.0-16.0); LYMPHOCYTES % 7.1 % (20.0-50.0); MEAN CORPUSCULAR HEMOGLOBIN 31.7 pg (28.0-32.0); MEAN CORPUSCULAR VOLUME 92.4 fL (81.0-99.0); MONOCYTES % 14.4 % (2.0-8.0); PLATELET 146 x1000/uL (130-400); RED BLOOD CELL COUNT 2.56 mill/uL (4.2-5.4); RED CELL DISTRIBUTION WIDTH 17.3 % (11.6-14.6)
[2023-02-18 05:35] LABS: CHLORIDE 122 mEq/L (98-107)
[2023-02-18] MEDS: INSULIN LISPRO 100 UNITS/ML SUBCUT SCH ×4 (06:00→17:40)
[2023-02-18] MEDS: METOCLOPRAMIDE HCL 10MG/2ML VIAL IV SCH ×2 (06:15→14:24)
[2023-02-18] MEDS: BLOOD SUGAR DIAGNOSTIC STRIP TEST SCH ×4 (06:15→17:35)
[2023-02-18] MEDS: PANTOPRAZOLE SODIUM 40 MG/VIAL IV SCH ×2 (06:15→17:39)
[2023-02-18] MEDS: DEXT 5%/0.9% NACL 1,000 ML IV SCH ×2 (06:29→21:11)
[2023-02-18] MEDS: LEVETIRACETAM 500MG/5ML CUP GT SCH ×2 (08:32→17:39)
[2023-02-18] MEDS: MEROPENEM 1,000 MG in SODIUM CHLORIDE 0.9% 100 ML IV SCH ×2 (08:32→20:10)
[2023-02-18 08:45] LABS: BG BASE EXCESS -5.2 mmol/L (-2.0-2.0); BG CARBOXYHEMOGLOBIN 0.3 % (0.5-1.5); BG DEOXYHEMOGLOBIN 1.4 % (0.0-5.0); BG FRACTION INSPIRED OXYGEN 35; BG HCO3 ACT 19.6 mmol/L (22.0-26.0); BG METHEMOGLOBIN 0.2 % (0.0-1.5); BG OXYGEN SATURATION 98.6 % (92.0-98.5); BG OXYHEMOGLOBIN 98.1 % (94.0-97.0); BG PCO2 34.7 mmHg (35.0-45.0); BG PH 7.369 (7.350-7.450); BG PO2 159.8 mmHg (75.0-100.0); BG SAMPLE SITE RIGHT RADIAL; BG TOTAL HEMOGLOBIN 8.5 g/dL (12.0-18.0); BG VENT MODE VENT - CPAP
[2023-02-18] MEDS: POTASSIUM CHLORIDE INJ 40 MEQ in DEXT 5% WATER 250 ML IV SCH (09:48)
[2023-02-18] MEDS ORDERED: POTASSIUM CHLORIDE INJ 40 MEQ in DEXT 5% WATER 250 ML IV ONE (12:15)
[2023-02-18] MEDS ORDERED: RACEPINEPHRINE 2.25% 0.5ML NEB VIAL ONE (14:47)
[2023-02-18 15:19] LABS: BG BASE EXCESS -5.5 mmol/L (-2.0-2.0); BG CARBOXYHEMOGLOBIN 0.3 % (0.5-1.5); BG DEOXYHEMOGLOBIN 1.2 % (0.0-5.0); BG FRACTION INSPIRED OXYGEN 60; BG HCO3 ACT 18.5 mmol/L (22.0-26.0); BG METHEMOGLOBIN 0.4 % (0.0-1.5); BG OXYGEN SATURATION 98.8 % (92.0-98.5); BG OXYHEMOGLOBIN 98.1 % (94.0-97.0); BG PCO2 30.5 mmHg (35.0-45.0); BG PO2 169.1 mmHg (75.0-100.0); BG SAMPLE SITE LEFT RADIAL; BG TOTAL HEMOGLOBIN 9.7 g/dL (12.0-18.0); BG VENT MODE MASK - HHN
[2023-02-18] MEDS: KCL 20MEQ/100ML PREMIX 100 ML IV SCH ×2 (15:34→17:40)
[2023-02-18] MEDS ORDERED: METHYLPREDNISOLONE SOD SUCC 125 MG/2 ML VIAL IV NR (15:45)
[2023-02-18 16:16] LABS: HEMATOCRIT 25.3 % (36.0-48.0); HEMOGLOBIN 8.7 g/dL (12.0-16.0)
[2023-02-18] MEDS: SULFAMETHOXAZOLE/TRIMETHOPRIM 200-40 MG/5ML 5ML ORAL SYR PO SCH (17:39)
[2023-02-18 19:32] LABS: HEMATOCRIT 25.3 % (36.0-48.0); HEMOGLOBIN 8.5 g/dL (12.0-16.0)
[2023-02-18] MEDS: TOBRAMYCIN SULFATE 40MG/ML 2ML INH SCH (20:25)
[2023-02-19] VITALS (68 sets, daily range): BP systolic 90–137; BP diastolic 54–90
[2023-02-19 00:52] LABS: HEMATOCRIT 24.9 % (36.0-48.0); HEMOGLOBIN 8.5 g/dL (12.0-16.0)
[2023-02-19] MEDS: INSULIN LISPRO 100 UNITS/ML SUBCUT SCH ×4 (01:08→18:00)
[2023-02-19] MEDS: IPRATROPIUM/ALBUTEROL 0.5-3(2.5)MG/3ML NEB HHN SCH ×4 (02:22→20:43)
[2023-02-19 05:37] LABS: HEMATOCRIT. 23.6 % (36.0-48.0); MEAN CORPUSCULAR HEMOGLOBIN 31.8 pg (28.0-32.0); MEAN CORPUSCULAR VOLUME 93.1 fL (81.0-99.0); PLATELET 151 x1000/uL (130-400); RED BLOOD CELL COUNT 2.53 mill/uL (4.2-5.4); RED CELL DISTRIBUTION WIDTH 16.9 % (11.6-14.6)
[2023-02-19 05:42] LABS: CHLORIDE 122 mEq/L (98-107)
[2023-02-19] MEDS: PANTOPRAZOLE SODIUM 40 MG/VIAL IV SCH ×2 (06:18→18:00)
[2023-02-19] MEDS: SULFAMETHOXAZOLE/TRIMETHOPRIM 200-40 MG/5ML 5ML ORAL SYR PO SCH ×2 (06:19→18:00)
[2023-02-19] MEDS: BLOOD SUGAR DIAGNOSTIC STRIP TEST SCH ×4 (06:19→18:00)
[2023-02-19] MEDS: DEXT 5%/0.9% NACL 1,000 ML IV SCH (07:06)
[2023-02-19] MEDS: MEROPENEM 1,000 MG in SODIUM CHLORIDE 0.9% 100 ML IV SCH ×2 (09:07→20:10)
[2023-02-19] MEDS: LEVETIRACETAM 500MG/5ML CUP GT SCH ×2 (09:07→17:00)
[2023-02-19] MEDS: POTASSIUM CHLORIDE INJ 40 MEQ in DEXT 5% WATER 250 ML IV SCH (09:11)
[2023-02-19] MEDS: TOBRAMYCIN SULFATE 40MG/ML 2ML INH SCH ×3 (09:13→20:43)
[2023-02-19 11:15] LABS: PLATELET ESTIMATE NORMAL
[2023-02-19 15:58] LABS: HEMATOCRIT 26.2 % (36.0-48.0); HEMOGLOBIN 8.6 g/dL (12.0-16.0)
[2023-02-19 22:18] LABS: HEMATOCRIT 23.5 % (36.0-48.0); HEMOGLOBIN 7.9 g/dL (12.0-16.0)
[2023-02-20] VITALS (66 sets, daily range): BP systolic 83–159; BP diastolic 42–76
[2023-02-20] MEDS: BLOOD SUGAR DIAGNOSTIC STRIP TEST SCH ×4 (00:04→17:36)
[2023-02-20] MEDS: IPRATROPIUM/ALBUTEROL 0.5-3(2.5)MG/3ML NEB HHN SCH ×4 (02:03→20:16)
[2023-02-20] MEDS: DEXT 5%/0.9% NACL 1,000 ML IV SCH ×2 (02:19→22:28)
[2023-02-20] MEDS: PANTOPRAZOLE SODIUM 40 MG/VIAL IV SCH ×2 (05:23→09:46)
[2023-02-20] MEDS: SULFAMETHOXAZOLE/TRIMETHOPRIM 200-40 MG/5ML 5ML ORAL SYR PO SCH ×2 (05:23→17:45)
[2023-02-20] MEDS: INSULIN LISPRO 100 UNITS/ML SUBCUT SCH ×4 (05:24→18:00)
[2023-02-20 05:57] LABS: BASOPHILS % 0.2 % (0.0-2.0); EOSINOPHILS % 0.5 % (0.0-5.0); HEMATOCRIT. 22.5 % (36.0-48.0); HEMOGLOBIN. 7.6 g/dL (12.0-16.0); INR 1.1; LYMPHOCYTES % 9.2 % (20.0-50.0); MEAN CORPUSCULAR HEMOGLOBIN 31.1 pg (28.0-32.0); MEAN CORPUSCULAR VOLUME 92.2 fL (81.0-99.0); MEAN PLATELET VOLUME 9.4 fl (7.4-10.4); MONOCYTES % 10.9 % (2.0-8.0); NEUTROPHILS % 79.2 % (40.0-76.0); PLATELET 195 x1000/uL (130-400); PROTHROMBIN TIME 11.3 sec (9.6-11.0); RED BLOOD CELL COUNT 2.44 mill/uL (4.2-5.4)
[2023-02-20 06:29] LABS: CHLORIDE 120 mEq/L (98-107)
[2023-02-20] MEDS: MEROPENEM 1,000 MG in SODIUM CHLORIDE 0.9% 100 ML IV SCH ×2 (07:44→20:21)
[2023-02-20] MEDS: POTASSIUM CHLORIDE INJ 40 MEQ in DEXT 5% WATER 250 ML IV SCH (09:46)
[2023-02-20] MEDS: LEVETIRACETAM 500MG/5ML CUP GT SCH ×2 (09:50→17:29)
[2023-02-20] MEDS: TOBRAMYCIN SULFATE 40MG/ML 2ML INH SCH (15:13)
[2023-02-20 21:37] LABS: HEMATOCRIT 25.5 % (36.0-48.0); HEMOGLOBIN 8.7 g/dL (12.0-16.0)
[2023-02-21] VITALS (46 sets, daily range): BP systolic 83–127; BP diastolic 43–78
[2023-02-21] MEDS: BLOOD SUGAR DIAGNOSTIC STRIP TEST SCH ×4 (00:29→18:00)
[2023-02-21] MEDS: PANTOPRAZOLE SODIUM 40 MG/VIAL IV SCH ×2 (05:40→18:00)
[2023-02-21] MEDS: SULFAMETHOXAZOLE/TRIMETHOPRIM 200-40 MG/5ML 5ML ORAL SYR PO SCH ×2 (05:41→18:00)
[2023-02-21] MEDS: INSULIN LISPRO 100 UNITS/ML SUBCUT SCH ×4 (05:42→18:00)
[2023-02-21 05:56] LABS: BASOPHILS % 0.2 % (0.0-2.0); EOSINOPHILS % 1.7 % (0.0-5.0); HEMATOCRIT. 24.8 % (36.0-48.0); HEMOGLOBIN. 8.5 g/dL (12.0-16.0); LYMPHOCYTES % 16.6 % (20.0-50.0); MEAN CORPUSCULAR HEMOGLOBIN 30.8 pg (28.0-32.0); MEAN CORPUSCULAR VOLUME 90.5 fL (81.0-99.0); MEAN PLATELET VOLUME 9.3 fl (7.4-10.4); MONOCYTES % 11.6 % (2.0-8.0); NEUTROPHILS % 69.9 % (40.0-76.0); PLATELET 178 x1000/uL (130-400); RED BLOOD CELL COUNT 2.74 mill/uL (4.2-5.4); RED CELL DISTRIBUTION WIDTH 17.3 % (11.6-14.6)
[2023-02-21 06:08] LABS: INR 1.1; PROTHROMBIN TIME 11.5 sec (9.6-11.0)
[2023-02-21 07:34] LABS: CHLORIDE 118 mEq/L (98-107)
[2023-02-21] MEDS: TOBRAMYCIN SULFATE 40MG/ML 2ML INH SCH ×2 (09:11→14:58)
[2023-02-21] MEDS: POTASSIUM CHLORIDE INJ 40 MEQ in DEXT 5% WATER 250 ML IV SCH (09:16)
[2023-02-21] MEDS: LEVETIRACETAM 500MG/5ML CUP GT SCH ×2 (09:16→15:12)
[2023-02-21] MEDS: MEROPENEM 1,000 MG in SODIUM CHLORIDE 0.9% 100 ML IV SCH ×2 (09:16→21:56)
[2023-02-21] MEDS: MIDODRINE HCL 5MG TABLET PO SCH ×3 (10:15→17:00)
[2023-02-21] MEDS ORDERED: BISACODYL 5MG TABLET PO SCH (10:30)
[2023-02-21] MEDS: METOCLOPRAMIDE HCL 10MG/2ML VIAL IV SCH ×2 (10:30→15:12)
[2023-02-21] MEDS: SORBITOL 70% SOLN 30ML GT SCH ×2 (11:00→15:12)
[2023-02-21] MEDS: DEXT 5%/0.9% NACL 1,000 ML IV SCH (18:00)
[2023-02-21 18:17] LABS: HEMATOCRIT 26.2 % (36.0-48.0); HEMOGLOBIN 8.9 g/dL (12.0-16.0)
[2023-02-22] VITALS (81 sets, daily range): BP systolic 61–130; BP diastolic 38–84
[2023-02-22 03:42] LABS: BASOPHILS % 0.1 % (0.0-2.0); EOSINOPHILS % 2.3 % (0.0-5.0); HEMOGLOBIN. 9.7 g/dL (12.0-16.0); LYMPHOCYTES % 14.8 % (20.0-50.0); MEAN CORPUSCULAR HEMOGLOBIN 30.2 pg (28.0-32.0); MEAN CORPUSCULAR VOLUME 90.4 fL (81.0-99.0); NEUTROPHILS % 71.8 % (40.0-76.0); PLATELET 251 x1000/uL (130-400); RED BLOOD CELL COUNT 3.21 mill/uL (4.2-5.4); RED CELL DISTRIBUTION WIDTH 17.1 % (11.6-14.6)
[2023-02-22 03:47] LABS: CHLORIDE 121 mEq/L (98-107)
[2023-02-22 04:15] LABS: INR 1.1; PROTHROMBIN TIME 11.4 sec (9.6-11.0)
[2023-02-22] MEDS: SULFAMETHOXAZOLE/TRIMETHOPRIM 200-40 MG/5ML 5ML ORAL SYR PO SCH ×2 (06:00→18:02)
[2023-02-22] MEDS: INSULIN LISPRO 100 UNITS/ML SUBCUT SCH ×4 (06:00→17:05)
[2023-02-22] MEDS: BLOOD SUGAR DIAGNOSTIC STRIP TEST SCH ×4 (06:00→17:05)
[2023-02-22] MEDS: PANTOPRAZOLE SODIUM 40 MG/VIAL IV SCH ×2 (07:16→18:02)
[2023-02-22] MEDS: MIDODRINE HCL 5MG TABLET PO SCH ×4 (08:54→18:02)
[2023-02-22] MEDS: MEROPENEM 1,000 MG in SODIUM CHLORIDE 0.9% 100 ML IV SCH ×2 (09:07→22:24)
[2023-02-22] MEDS: LEVETIRACETAM 500MG/5ML CUP GT SCH ×2 (09:07→18:02)
[2023-02-22] MEDS: PHENYLEPHRINE 100 MG in DEXT 5% WATER 240 ML IV PRN (09:13)
[2023-02-22] MEDS: DEXT 5%/0.9% NACL 1,000 ML IV SCH (13:44)
[2023-02-22 17:14] LABS: CREATINE KINASE 27 IU/L (26-192)
[2023-02-22] MEDS ORDERED: IPRATROPIUM/ALBUTEROL 0.5-3(2.5)MG/3ML NEB HHN PRN (17:30)
[2023-02-22] MEDS: TOBRAMYCIN SULFATE 40MG/ML 2ML INH SCH (20:32)
[2023-02-22] MEDS: IPRATROPIUM/ALBUTEROL 0.5-3(2.5)MG/3ML NEB HHN SCH (20:34)
[2023-02-23] VITALS (97 sets, daily range): BP systolic 80–125; BP diastolic 48–73
[2023-02-23] MEDS: INSULIN LISPRO 100 UNITS/ML SUBCUT SCH ×4 (01:55→17:47)
[2023-02-23] MEDS: IPRATROPIUM/ALBUTEROL 0.5-3(2.5)MG/3ML NEB HHN SCH ×4 (02:59→20:04)
[2023-02-23 04:16] LABS: BASOPHILS % 0.2 % (0.0-2.0); EOSINOPHILS % 0.6 % (0.0-5.0); HEMATOCRIT. 24.4 % (36.0-48.0); HEMOGLOBIN. 8.1 g/dL (12.0-16.0); LYMPHOCYTES % 11.8 % (20.0-50.0); MEAN CORPUSCULAR HEMOGLOBIN 29.6 pg (28.0-32.0); MEAN CORPUSCULAR VOLUME 89.2 fL (81.0-99.0); MEAN PLATELET VOLUME 8.1 fl (7.4-10.4); MONOCYTES % 7.8 % (2.0-8.0); NEUTROPHILS % 79.6 % (40.0-76.0); PLATELET 263 x1000/uL (130-400); RED BLOOD CELL COUNT 2.74 mill/uL (4.2-5.4)
[2023-02-23 04:39] LABS: CHLORIDE 123 mEq/L (98-107)
[2023-02-23] MEDS: BLOOD SUGAR DIAGNOSTIC STRIP TEST SCH ×4 (06:11→17:47)
[2023-02-23] MEDS: SULFAMETHOXAZOLE/TRIMETHOPRIM 200-40 MG/5ML 5ML ORAL SYR PO SCH ×2 (06:11→17:55)
[2023-02-23] MEDS: PANTOPRAZOLE SODIUM 40 MG/VIAL IV SCH ×2 (06:11→17:55)
[2023-02-23] MEDS: DEXTROSE 5% WATER 1,000 ML IV SCH (07:25)
[2023-02-23] MEDS: LEVETIRACETAM 500MG/5ML CUP GT SCH ×2 (09:53→17:55)
[2023-02-23] MEDS: MEROPENEM 1,000 MG in SODIUM CHLORIDE 0.9% 100 ML IV SCH ×2 (09:53→20:57)
[2023-02-23] MEDS: MIDODRINE HCL 5MG TABLET PO SCH ×3 (09:53→17:56)
[2023-02-23] MEDS: ACETAMINOPHEN 650MG/20.3ML UDC PO PRN (12:10)
[2023-02-23] MEDS: TOBRAMYCIN SULFATE 40MG/ML 2ML INH SCH ×2 (13:42→20:09)
[2023-02-23] MEDS ORDERED: POTASSIUM CHLORIDE 20MEQ/PACKET GT SCH (14:45)
[2023-02-23 19:38] LABS: CLARITY URINE TURBID (CLEAR); COLOR URINE YELLOW (YELLOW); KETONES URINE NEGATIVE (NEGATIVE); LEUKOCYTE ESTERASE URINE 3+ (NEGATIVE); NITRITE URINE NEGATIVE (NEGATIVE); OCCULT BLOOD URINE 3+ (NEGATIVE); PH URINE 6.5 (4.5-8.0); PROTEIN URINE 1+ (NEGATIVE); SPECIFIC GRAVITY URINE 1.018 (1.005-1.030)
[2023-02-24] VITALS (65 sets, daily range): BP systolic 39–143; BP diastolic 22–105
[2023-02-24] MEDS: BLOOD SUGAR DIAGNOSTIC STRIP TEST SCH ×4 (00:38→18:28)
[2023-02-24] MEDS: IPRATROPIUM/ALBUTEROL 0.5-3(2.5)MG/3ML NEB HHN SCH ×4 (01:43→20:12)
[2023-02-24] MEDS: DEXTROSE 5% WATER 1,000 ML IV SCH ×2 (03:26→23:50)
[2023-02-24] MEDS: ACETAMINOPHEN 650MG/20.3ML UDC PO PRN (03:36)
[2023-02-24 04:58] LABS: BASOPHILS % 0.3 % (0.0-2.0); EOSINOPHILS % 2.2 % (0.0-5.0); HEMATOCRIT. 22.7 % (36.0-48.0); HEMOGLOBIN. 7.7 g/dL (12.0-16.0); LYMPHOCYTES % 12.6 % (20.0-50.0); MEAN CORPUSCULAR HEMOGLOBIN 30.7 pg (28.0-32.0); MEAN CORPUSCULAR VOLUME 90.5 fL (81.0-99.0); MEAN PLATELET VOLUME 8.7 fl (7.4-10.4); MONOCYTES % 7.9 % (2.0-8.0); PLATELET 271 x1000/uL (130-400); RED BLOOD CELL COUNT 2.51 mill/uL (4.2-5.4)
[2023-02-24 05:01] LABS: CHLORIDE 113 mEq/L (98-107)
[2023-02-24] MEDS: SULFAMETHOXAZOLE/TRIMETHOPRIM 200-40 MG/5ML 5ML ORAL SYR PO SCH ×2 (06:17→18:28)
[2023-02-24] MEDS: PANTOPRAZOLE SODIUM 40 MG/VIAL IV SCH ×2 (06:17→18:28)
[2023-02-24] MEDS: INSULIN LISPRO 100 UNITS/ML SUBCUT SCH ×4 (06:18→18:00)
[2023-02-24] MEDS: MEROPENEM 1,000 MG in SODIUM CHLORIDE 0.9% 100 ML IV SCH ×2 (09:15→20:49)
[2023-02-24] MEDS: LEVETIRACETAM 500MG/5ML CUP GT SCH ×2 (09:15→17:10)
[2023-02-24] MEDS: MIDODRINE HCL 5MG TABLET PO SCH ×3 (09:15→17:11)
[2023-02-24] MEDS: TOBRAMYCIN SULFATE 40MG/ML 2ML INH SCH (14:36)
[2023-02-24] MEDS: PHENYLEPHRINE 100 MG in DEXT 5% WATER 240 ML IV PRN (17:12)
[2023-02-25] VITALS (97 sets, daily range): BP systolic 52–121; BP diastolic 36–72
[2023-02-25] MEDS: TOBRAMYCIN SULFATE 40MG/ML 2ML INH SCH ×3 (00:17→21:27)
[2023-02-25] MEDS: BLOOD SUGAR DIAGNOSTIC STRIP TEST SCH ×5 (00:23→23:49)
[2023-02-25] MEDS: IPRATROPIUM/ALBUTEROL 0.5-3(2.5)MG/3ML NEB HHN SCH ×4 (02:27→21:13)
[2023-02-25] MEDS: INSULIN LISPRO 100 UNITS/ML SUBCUT SCH ×5 (05:34→23:49)
[2023-02-25] MEDS: SULFAMETHOXAZOLE/TRIMETHOPRIM 200-40 MG/5ML 5ML ORAL SYR PO SCH ×2 (05:38→17:33)
[2023-02-25 06:09] LABS: BASOPHILS % 0.4 % (0.0-2.0); EOSINOPHILS % 3.3 % (0.0-5.0); HEMATOCRIT. 21.9 % (36.0-48.0); HEMOGLOBIN. 7.4 g/dL (12.0-16.0); LYMPHOCYTES % 17.2 % (20.0-50.0); MEAN CORPUSCULAR HEMOGLOBIN 30.9 pg (28.0-32.0); MEAN CORPUSCULAR VOLUME 91.5 fL (81.0-99.0); MEAN PLATELET VOLUME 8.4 fl (7.4-10.4); MONOCYTES % 8.9 % (2.0-8.0); NEUTROPHILS % 70.2 % (40.0-76.0); PLATELET 273 x1000/uL (130-400); RED BLOOD CELL COUNT 2.39 mill/uL (4.2-5.4)
[2023-02-25] MEDS: PANTOPRAZOLE SODIUM 40 MG/VIAL IV SCH ×2 (06:20→17:33)
[2023-02-25 06:21] LABS: CHLORIDE 102 mEq/L (98-107)
[2023-02-25] MEDS: MIDODRINE HCL 5MG TABLET PO SCH ×3 (09:09→17:33)
[2023-02-25] MEDS: LEVETIRACETAM 500MG/5ML CUP GT SCH ×2 (09:09→17:32)
[2023-02-25] MEDS: DEXTROSE 5% WATER 1,000 ML IV SCH (18:32)
[2023-02-25 21:44] LABS: HEMATOCRIT 27.7 % (36.0-48.0); HEMOGLOBIN 9.4 g/dL (12.0-16.0)
[2023-02-25] MEDS: NOREPINEPHRINE 8 MG in DEXT 5% WATER 242 ML IV PRN (23:36)
[2023-02-26] VITALS (100 sets, daily range): BP systolic 42–152; BP diastolic 18–123
[2023-02-26] MEDS: IPRATROPIUM/ALBUTEROL 0.5-3(2.5)MG/3ML NEB HHN SCH ×4 (01:00→21:30)
[2023-02-26] MEDS ORDERED: SODIUM CHLORIDE 0.9% 500 ML IV ONE (01:15)
[2023-02-26] MEDS: NOREPINEPHRINE 8 MG in DEXT 5% WATER 242 ML IV PRN ×6 (02:47→18:40)
[2023-02-26 03:20] LABS: HEMATOCRIT 21.7 % (36.0-48.0); HEMOGLOBIN 7.4 g/dL (12.0-16.0)
[2023-02-26] MEDS: BLOOD SUGAR DIAGNOSTIC STRIP TEST SCH ×3 (05:47→18:00)
[2023-02-26] MEDS: SULFAMETHOXAZOLE/TRIMETHOPRIM 200-40 MG/5ML 5ML ORAL SYR PO SCH ×2 (05:48→18:00)
[2023-02-26] MEDS: PANTOPRAZOLE SODIUM 40 MG/VIAL IV SCH ×2 (05:49→18:19)
[2023-02-26] MEDS: INSULIN LISPRO 100 UNITS/ML SUBCUT SCH ×3 (05:58→18:20)
[2023-02-26 06:56] LABS: HEMATOCRIT. 23.3 % (36.0-48.0); HEMOGLOBIN. 7.7 g/dL (12.0-16.0); MEAN CORPUSCULAR HEMOGLOBIN 30.4 pg (28.0-32.0); MEAN CORPUSCULAR VOLUME 92.3 fL (81.0-99.0); MEAN PLATELET VOLUME 9.4 fl (7.4-10.4); PLATELET 283 x1000/uL (130-400); RED BLOOD CELL COUNT 2.53 mill/uL (4.2-5.4); RED CELL DISTRIBUTION WIDTH 15.9 % (11.6-14.6)
[2023-02-26 09:06] LABS: PLATELET ESTIMATE NORMAL
[2023-02-26] MEDS: TOBRAMYCIN SULFATE 40MG/ML 2ML INH SCH ×2 (09:40→21:45)
[2023-02-26] MEDS: LEVETIRACETAM 500MG/5ML CUP GT SCH ×2 (09:42→18:19)
[2023-02-26] MEDS: MIDODRINE HCL 5MG TABLET PO SCH ×3 (09:42→18:20)
[2023-02-26] MEDS ORDERED: LACTATED RINGERS 1,000 ML IV ONE (10:45)
[2023-02-26 12:45] LABS: HEMATOCRIT 29.7 % (36.0-48.0); MEAN CORPUSCULAR HEMOGLOBIN 31.7 pg (28.0-32.0); MEAN CORPUSCULAR VOLUME 94.5 fL (81.0-99.0); PLATELET 231 x1000/uL (130-400); RED BLOOD CELL COUNT 3.15 mill/uL (4.2-5.4)
[2023-02-26] MEDS: DEXTROSE 5% WATER 1,000 ML IV SCH (15:30)
[2023-02-26] MEDS: PHENYLEPHRINE 100 MG in DEXT 5% WATER 240 ML IV PRN (20:54)
[2023-02-26 22:59] LABS: CLARITY URINE TURBID (CLEAR); COLOR URINE DARK YELLOW (YELLOW); KETONES URINE NEGATIVE (NEGATIVE); LEUKOCYTE ESTERASE URINE 3+ (NEGATIVE); NITRITE URINE NEGATIVE (NEGATIVE); OCCULT BLOOD URINE 3+ (NEGATIVE); PROTEIN URINE 2+ (NEGATIVE); SPECIFIC GRAVITY URINE 1.013 (1.005-1.030); UROBILINOGEN URINE 0.2 E.U./dL (0.2-1.0)
[2023-02-27] VITALS (55 sets, daily range): BP systolic 66–125; BP diastolic 41–86
[2023-02-27] MEDS: INSULIN LISPRO 100 UNITS/ML SUBCUT SCH ×4 (01:05→18:00)
[2023-02-27] MEDS: NOREPINEPHRINE 32 MG in DEXT 5% WATER 218 ML IV PRN (01:10)
[2023-02-27] MEDS: IPRATROPIUM/ALBUTEROL 0.5-3(2.5)MG/3ML NEB HHN SCH ×3 (02:30→14:28)
[2023-02-27] MEDS: BLOOD SUGAR DIAGNOSTIC STRIP TEST SCH ×4 (05:45→18:40)
[2023-02-27 05:59] LABS: HEMATOCRIT. 27.4 % (36.0-48.0); HEMOGLOBIN. 9.3 g/dL (12.0-16.0); MEAN CORPUSCULAR HEMOGLOBIN 31.7 pg (28.0-32.0); MEAN CORPUSCULAR VOLUME 93.6 fL (81.0-99.0); MEAN PLATELET VOLUME 9.5 fl (7.4-10.4); PLATELET 236 x1000/uL (130-400); RED BLOOD CELL COUNT 2.92 mill/uL (4.2-5.4); RED CELL DISTRIBUTION WIDTH 17.8 % (11.6-14.6)
[2023-02-27] MEDS: PANTOPRAZOLE SODIUM 40 MG/VIAL IV SCH ×2 (06:02→18:40)
[2023-02-27] MEDS: SULFAMETHOXAZOLE/TRIMETHOPRIM 200-40 MG/5ML 5ML ORAL SYR PO SCH ×2 (06:02→18:40)
[2023-02-27] MEDS: PHENYLEPHRINE 100 MG in DEXT 5% WATER 240 ML IV PRN (07:02)
[2023-02-27] MEDS: DEXTROSE 5% WATER 1,000 ML IV SCH (07:03)
[2023-02-27 09:23] LABS: LDL CHOLESTEROL 25 mg/dL (5-100)
[2023-02-27] MEDS: LEVETIRACETAM 500MG/5ML CUP GT SCH ×2 (09:26→17:50)
[2023-02-27] MEDS: MIDODRINE HCL 5MG TABLET PO SCH ×3 (09:26→17:00)
[2023-02-27] MEDS: SODIUM CHLORIDE 0.9% 1,000 ML IV SCH (09:39)
[2023-02-27 10:12] LABS: HDL CHOLESTEROL 4 mg/dL (40-59)
[2023-02-27 10:50] LABS: BG BASE EXCESS -5.1 mmol/L (-2.0-2.0); BG CARBOXYHEMOGLOBIN 0.3 % (0.5-1.5); BG DEOXYHEMOGLOBIN 1.6 % (0.0-5.0); BG FRACTION INSPIRED OXYGEN 34; BG HCO3 ACT 15.3 mmol/L (22.0-26.0); BG METHEMOGLOBIN 0.3 % (0.0-1.5); BG OXYGEN SATURATION 98.4 % (92.0-98.5); BG OXYHEMOGLOBIN 97.8 % (94.0-97.0); BG PCO2 17.7 mmHg (35.0-45.0); BG PH 7.555 (7.350-7.450); BG PO2 129.1 mmHg (75.0-100.0); BG SAMPLE SITE RIGHT BRACHIAL; BG TOTAL HEMOGLOBIN 10.6 g/dL (12.0-18.0); BG VENT MODE NASAL CANNULA
[2023-02-27 12:26] LABS: PLATELET ESTIMATE NORMAL
[2023-02-27] MEDS: CEFEPIME 2,000 MG in DEXT 5% WATER 100 ML IV SCH (15:30)
[2023-02-27] MEDS: TOBRAMYCIN SULFATE 40MG/ML 2ML INH SCH (21:04)
[2023-02-28] VITALS (66 sets, daily range): BP systolic 62–165; BP diastolic 19–85
[2023-02-28] MEDS: INSULIN LISPRO 100 UNITS/ML SUBCUT SCH ×4 (01:26→18:00)
[2023-02-28] MEDS: CEFEPIME 2,000 MG in DEXT 5% WATER 100 ML IV SCH ×2 (03:42→16:00)
[2023-02-28] MEDS: NOREPINEPHRINE 32 MG in DEXT 5% WATER 218 ML IV PRN (03:43)
[2023-02-28] MEDS: PHENYLEPHRINE 100 MG in DEXT 5% WATER 240 ML IV PRN ×2 (03:44→23:45)
[2023-02-28 05:17] LABS: HEMATOCRIT. 24.5 % (36.0-48.0); HEMOGLOBIN. 8.3 g/dL (12.0-16.0); MEAN CORPUSCULAR HEMOGLOBIN 31.9 pg (28.0-32.0); MEAN CORPUSCULAR VOLUME 94.6 fL (81.0-99.0); MEAN PLATELET VOLUME 9.1 fl (7.4-10.4); PLATELET 241 x1000/uL (130-400); RED BLOOD CELL COUNT 2.59 mill/uL (4.2-5.4); RED CELL DISTRIBUTION WIDTH 19.8 % (11.6-14.6)
[2023-02-28 05:29] LABS: INR 1.2; PROTHROMBIN TIME 12.4 sec (9.6-11.0)
[2023-02-28] MEDS: SODIUM CHLORIDE 0.9% 1,000 ML IV SCH (06:17)
[2023-02-28] MEDS: SULFAMETHOXAZOLE/TRIMETHOPRIM 200-40 MG/5ML 5ML ORAL SYR PO SCH (06:18)
[2023-02-28] MEDS: PANTOPRAZOLE SODIUM 40 MG/VIAL IV SCH ×2 (06:18→18:32)
[2023-02-28] MEDS: BLOOD SUGAR DIAGNOSTIC STRIP TEST SCH ×4 (06:18→18:27)
[2023-02-28 06:58] LABS: PLATELET ESTIMATE NORMAL
[2023-02-28] MEDS: IPRATROPIUM/ALBUTEROL 0.5-3(2.5)MG/3ML NEB HHN SCH ×3 (08:10→21:01)
[2023-02-28] MEDS: TOBRAMYCIN SULFATE 40MG/ML 2ML INH SCH (08:10)
[2023-02-28] MEDS: LEVETIRACETAM 500MG/5ML CUP GT SCH ×2 (10:14→18:27)
[2023-02-28] MEDS: MIDODRINE HCL 5MG TABLET PO SCH ×3 (10:14→17:53)
[2023-03-01] VITALS (62 sets, daily range): BP systolic 84–130; BP diastolic 18–83
[2023-03-01] MEDS: BLOOD SUGAR DIAGNOSTIC STRIP TEST SCH ×5 (00:30→23:53)
[2023-03-01] MEDS: INSULIN LISPRO 100 UNITS/ML SUBCUT SCH ×5 (00:35→23:57)
[2023-03-01] MEDS: SODIUM CHLORIDE 0.9% 1,000 ML IV SCH ×2 (01:11→21:38)
[2023-03-01] MEDS: IPRATROPIUM/ALBUTEROL 0.5-3(2.5)MG/3ML NEB HHN SCH ×4 (01:46→21:08)
[2023-03-01] MEDS: ACETAMINOPHEN 650MG/20.3ML UDC PO PRN (02:36)
[2023-03-01] MEDS: CEFEPIME 2,000 MG in DEXT 5% WATER 100 ML IV SCH ×2 (03:14→17:11)
[2023-03-01] MEDS: PANTOPRAZOLE SODIUM 40 MG/VIAL IV SCH ×2 (06:33→18:56)
[2023-03-01 07:10] LABS: HEMATOCRIT. 28.6 % (36.0-48.0); HEMOGLOBIN. 9.7 g/dL (12.0-16.0); MEAN CORPUSCULAR HEMOGLOBIN 31.3 pg (28.0-32.0); MEAN CORPUSCULAR VOLUME 92.1 fL (81.0-99.0); MEAN PLATELET VOLUME 8.9 fl (7.4-10.4); PLATELET 230 x1000/uL (130-400); RED BLOOD CELL COUNT 3.11 mill/uL (4.2-5.4); RED CELL DISTRIBUTION WIDTH 18.5 % (11.6-14.6)
[2023-03-01] MEDS: LEVETIRACETAM 500MG/5ML CUP GT SCH ×2 (08:37→17:11)
[2023-03-01] MEDS: MIDODRINE HCL 5MG TABLET PO SCH ×2 (08:38→17:12)
[2023-03-01] MEDS: TOBRAMYCIN SULFATE 40MG/ML 2ML INH SCH ×2 (08:48→21:19)
[2023-03-01 10:24] LABS: PLATELET ESTIMATE NORMAL
[2023-03-01] MEDS: METOCLOPRAMIDE HCL 10MG/2ML VIAL IV SCH ×2 (17:11→18:56)
[2023-03-01] MEDS: PHENYLEPHRINE 100 MG in DEXT 5% WATER 240 ML IV PRN (20:24)
[2023-03-01] MEDS: NOREPINEPHRINE 32 MG in DEXT 5% WATER 218 ML IV PRN (20:26)
[2023-03-02] VITALS (96 sets, daily range): BP systolic 73–125; BP diastolic 45–94
[2023-03-02] MEDS: TOBRAMYCIN SULFATE 40MG/ML 2ML INH SCH ×2 (00:01→08:30)
[2023-03-02] MEDS: IPRATROPIUM/ALBUTEROL 0.5-3(2.5)MG/3ML NEB HHN SCH ×4 (01:19→20:04)
[2023-03-02] MEDS: CEFEPIME 2,000 MG in DEXT 5% WATER 100 ML IV SCH ×2 (03:53→15:37)
[2023-03-02] MEDS: PHENYLEPHRINE 100 MG in DEXT 5% WATER 240 ML IV PRN ×3 (03:54→21:56)
[2023-03-02] MEDS: INSULIN LISPRO 100 UNITS/ML SUBCUT SCH ×3 (06:00→19:26)
[2023-03-02] MEDS: PANTOPRAZOLE SODIUM 40 MG/VIAL IV SCH ×2 (06:27→19:26)
[2023-03-02] MEDS: BLOOD SUGAR DIAGNOSTIC STRIP TEST SCH ×3 (06:27→18:29)
[2023-03-02 06:46] LABS: HEMATOCRIT. 27.7 % (36.0-48.0); HEMOGLOBIN. 9.6 g/dL (12.0-16.0); MEAN CORPUSCULAR VOLUME 92.6 fL (81.0-99.0); PLATELET 224 x1000/uL (130-400); RED BLOOD CELL COUNT 2.99 mill/uL (4.2-5.4); RED CELL DISTRIBUTION WIDTH 19.9 % (11.6-14.6)
[2023-03-02 06:52] LABS: INR 1.1; PROTHROMBIN TIME 12.1 sec (9.6-11.0)
[2023-03-02] MEDS: LEVETIRACETAM 500MG/5ML CUP GT SCH ×2 (09:16→17:00)
[2023-03-02] MEDS: MIDODRINE HCL 5MG TABLET PO SCH ×3 (09:16→17:00)
[2023-03-02] MEDS ORDERED: SODIUM CHLORIDE 3% 250 ML IV ONE (12:30)
[2023-03-02 17:03] LABS: PLATELET ESTIMATE NORMAL
[2023-03-03] VITALS (100 sets, daily range): BP systolic 63–191; BP diastolic 26–90
[2023-03-03] MEDS: BLOOD SUGAR DIAGNOSTIC STRIP TEST SCH ×4 (00:41→17:27)
[2023-03-03] MEDS: IPRATROPIUM/ALBUTEROL 0.5-3(2.5)MG/3ML NEB HHN SCH ×5 (02:05→19:56)
[2023-03-03] MEDS: CEFEPIME 2,000 MG in DEXT 5% WATER 100 ML IV SCH ×2 (03:16→15:56)
[2023-03-03] MEDS: INSULIN LISPRO 100 UNITS/ML SUBCUT SCH ×4 (05:23→17:27)
[2023-03-03] MEDS: PANTOPRAZOLE SODIUM 40 MG/VIAL IV SCH ×2 (05:32→17:27)
[2023-03-03] MEDS: PHENYLEPHRINE 100 MG in DEXT 5% WATER 240 ML IV PRN ×3 (06:29→23:06)
[2023-03-03 06:50] LABS: BASOPHILS % 0.1 % (0.0-2.0); EOSINOPHILS % 1.4 % (0.0-5.0); HEMATOCRIT. 30.7 % (36.0-48.0); HEMOGLOBIN. 10.5 g/dL (12.0-16.0); LYMPHOCYTES % 9.5 % (20.0-50.0); MEAN CORPUSCULAR HEMOGLOBIN 32.5 pg (28.0-32.0); MEAN CORPUSCULAR VOLUME 94.6 fL (81.0-99.0); MEAN PLATELET VOLUME 8.8 fl (7.4-10.4); MONOCYTES % 14.4 % (2.0-8.0); NEUTROPHILS % 74.6 % (40.0-76.0); PLATELET 256 x1000/uL (130-400); RED BLOOD CELL COUNT 3.24 mill/uL (4.2-5.4); RED CELL DISTRIBUTION WIDTH 20.7 % (11.6-14.6)
[2023-03-03 06:58] LABS: CHLORIDE 102 mEq/L (98-107)
[2023-03-03] MEDS: LEVETIRACETAM 500MG/5ML CUP GT SCH ×2 (08:37→17:27)
[2023-03-03] MEDS: MIDODRINE HCL 5MG TABLET PO SCH ×3 (08:38→17:27)
[2023-03-03] MEDS: TOBRAMYCIN SULFATE 40MG/ML 2ML INH SCH ×2 (09:07→19:55)
[2023-03-03] MEDS: POVIDONE-IODINE 10% TOPICAL SOLN 240ML TOP SCH (09:40)
[2023-03-03] MEDS: RACEPINEPHRINE 2.25% 0.5ML NEB VIAL HHN PRN (12:48)
[2023-03-03 14:12] LABS: BG BASE EXCESS -7.4 mmol/L (-2.0-2.0); BG CARBOXYHEMOGLOBIN 0.2 % (0.5-1.5); BG DEOXYHEMOGLOBIN 0.6 % (0.0-5.0); BG FRACTION INSPIRED OXYGEN 100; BG HCO3 ACT 14.3 mmol/L (22.0-26.0); BG METHEMOGLOBIN 0.3 % (0.0-1.5); BG OXYGEN SATURATION 99.4 % (92.0-98.5); BG OXYHEMOGLOBIN 98.9 % (94.0-97.0); BG PCO2 19.1 mmHg (35.0-45.0); BG PH 7.492 (7.350-7.450); BG SAMPLE SITE RIGHT BRACHIAL; BG TOTAL HEMOGLOBIN 9.7 g/dL (12.0-18.0); BG VENT MODE MASK - NRB
[2023-03-03] MEDS ORDERED: DIATR MEGLU/DIATRIZOATE SOLN 30ML PO NR (17:00)
[2023-03-03] MEDS: NOREPINEPHRINE 32 MG in DEXT 5% WATER 218 ML IV PRN (23:07)
[2023-03-04] VITALS (91 sets, daily range): BP systolic 77–139; BP diastolic 43–91
[2023-03-04] MEDS: BLOOD SUGAR DIAGNOSTIC STRIP TEST SCH ×4 (00:31→18:07)
[2023-03-04] MEDS: INSULIN LISPRO 100 UNITS/ML SUBCUT SCH ×4 (00:36→18:00)
[2023-03-04] MEDS: IPRATROPIUM/ALBUTEROL 0.5-3(2.5)MG/3ML NEB HHN SCH ×4 (02:15→19:53)
[2023-03-04] MEDS: CEFEPIME 2,000 MG in DEXT 5% WATER 100 ML IV SCH ×2 (04:40→15:28)
[2023-03-04 05:47] LABS: HEMATOCRIT. 25.9 % (36.0-48.0); HEMOGLOBIN. 8.7 g/dL (12.0-16.0); MEAN CORPUSCULAR HEMOGLOBIN 31.9 pg (28.0-32.0); MEAN CORPUSCULAR VOLUME 95.2 fL (81.0-99.0); MEAN PLATELET VOLUME 8.6 fl (7.4-10.4); PLATELET 187 x1000/uL (130-400); RED BLOOD CELL COUNT 2.72 mill/uL (4.2-5.4); RED CELL DISTRIBUTION WIDTH 20.6 % (11.6-14.6)
[2023-03-04] MEDS: PHENYLEPHRINE 100 MG in DEXT 5% WATER 240 ML IV PRN ×2 (06:31→15:29)
[2023-03-04] MEDS: PANTOPRAZOLE SODIUM 40 MG/VIAL IV SCH ×2 (06:31→18:17)
[2023-03-04] MEDS: TOBRAMYCIN SULFATE 40MG/ML 2ML INH SCH ×2 (07:44→22:17)
[2023-03-04] MEDS: DEXT 5%/0.9% NACL 1,000 ML IV SCH (08:57)
[2023-03-04] MEDS: POVIDONE-IODINE 10% TOPICAL SOLN 240ML TOP SCH (08:57)
[2023-03-04] MEDS: LEVETIRACETAM 500MG/5ML CUP GT SCH ×2 (08:57→16:55)
[2023-03-04 10:09] LABS: PLATELET ESTIMATE NORMAL
[2023-03-04] MEDS: MIDODRINE HCL 5MG TABLET NG SCH ×3 (10:43→22:14)
[2023-03-04] MEDS ORDERED: VANCOMYCIN 1.25GM PMX (XELLIA) 250 ML IV NR (15:00)
[2023-03-04] MEDS: IPRATROPIUM BROMIDE (0.02%) 0.5MG/2.5ML NEB HHN PRN (17:38)
[2023-03-04] MEDS: RACEPINEPHRINE 2.25% 0.5ML NEB VIAL HHN PRN (17:39)
[2023-03-05] VITALS (94 sets, daily range): BP systolic 73–129; BP diastolic 36–80
[2023-03-05] MEDS: NOREPINEPHRINE 32 MG in DEXT 5% WATER 218 ML IV PRN (00:53)
[2023-03-05] MEDS: PHENYLEPHRINE 100 MG in DEXT 5% WATER 240 ML IV PRN ×3 (01:07→18:42)
[2023-03-05] MEDS: CEFEPIME 2,000 MG in DEXT 5% WATER 100 ML IV SCH (02:58)
[2023-03-05] MEDS: PANTOPRAZOLE SODIUM 40 MG/VIAL IV SCH ×2 (05:53→18:15)
[2023-03-05] MEDS: MIDODRINE HCL 5MG TABLET NG SCH ×4 (05:54→22:54)
[2023-03-05] MEDS: BLOOD SUGAR DIAGNOSTIC STRIP TEST SCH ×4 (06:27→18:15)
[2023-03-05] MEDS: INSULIN LISPRO 100 UNITS/ML SUBCUT SCH ×4 (06:27→18:00)
[2023-03-05] MEDS: IPRATROPIUM BROMIDE (0.02%) 0.5MG/2.5ML NEB HHN PRN (08:24)
[2023-03-05] MEDS ORDERED: DIATR MEGLU/DIATRIZOATE SOLN 120ML ONE (08:31)
[2023-03-05] MEDS: TOBRAMYCIN SULFATE 40MG/ML 2ML INH SCH ×2 (08:40→21:12)
[2023-03-05] MEDS: LEVETIRACETAM 500MG/5ML CUP GT SCH ×2 (09:31→16:23)
[2023-03-05] MEDS: DEXT 5%/0.9% NACL 1,000 ML IV SCH (09:31)
[2023-03-05] MEDS ORDERED: POTASSIUM CHLORIDE INJ 40 MEQ in DEXT 5% WATER 500 ML IV ONE (10:00)
[2023-03-05] MEDS: VANCOMYCIN 1G PREMIX 200 ML IV SCH (10:48)
[2023-03-05 11:04] LABS: HEMATOCRIT. 23.9 % (36.0-48.0); HEMOGLOBIN. 7.7 g/dL (12.0-16.0); MEAN CORPUSCULAR HEMOGLOBIN 30.6 pg (28.0-32.0); MEAN CORPUSCULAR VOLUME 94.6 fL (81.0-99.0); MEAN PLATELET VOLUME 8.8 fl (7.4-10.4); PLATELET 85 x1000/uL (130-400); RED BLOOD CELL COUNT 2.53 mill/uL (4.2-5.4); RED CELL DISTRIBUTION WIDTH 19.1 % (11.6-14.6)
[2023-03-05 12:44] LABS: PLATELET ESTIMATE DECREASED
[2023-03-05] MEDS: MEROPENEM 1,000 MG in SODIUM CHLORIDE 0.9% 100 ML IV SCH (16:26)
[2023-03-05] MEDS ORDERED: AMIKACIN SULFATE 300 MG in SODIUM CHLORIDE 0.9% 100 ML IV NR (17:00)
[2023-03-05] MEDS: IPRATROPIUM/ALBUTEROL 0.5-3(2.5)MG/3ML NEB HHN SCH (21:00)
[2023-03-06] VITALS (99 sets, daily range): BP systolic 76–111; BP diastolic 42–68
[2023-03-06] MEDS: BLOOD SUGAR DIAGNOSTIC STRIP TEST SCH ×4 (00:15→18:32)
[2023-03-06] MEDS: IPRATROPIUM/ALBUTEROL 0.5-3(2.5)MG/3ML NEB HHN SCH ×4 (01:19→21:06)
[2023-03-06] MEDS: PHENYLEPHRINE 100 MG in DEXT 5% WATER 240 ML IV PRN ×3 (03:21→20:52)
[2023-03-06] MEDS: PANTOPRAZOLE SODIUM 40 MG/VIAL IV SCH ×2 (05:06→18:40)
[2023-03-06] MEDS: MEROPENEM 1,000 MG in SODIUM CHLORIDE 0.9% 100 ML IV SCH ×2 (05:08→18:40)
[2023-03-06 05:52] LABS: CHLORIDE 111 mEq/L (98-107)
[2023-03-06 05:57] LABS: PHOSPHORUS 2.3 mg/dL (2.5-4.9)
[2023-03-06 06:15] LABS: HEMATOCRIT. 23.7 % (36.0-48.0); HEMOGLOBIN. 7.8 g/dL (12.0-16.0); MEAN CORPUSCULAR HEMOGLOBIN 30.9 pg (28.0-32.0); MEAN CORPUSCULAR VOLUME 94.1 fL (81.0-99.0); MEAN PLATELET VOLUME 9.5 fl (7.4-10.4); PLATELET 53 x1000/uL (130-400); RED BLOOD CELL COUNT 2.51 mill/uL (4.2-5.4); RED CELL DISTRIBUTION WIDTH 19.2 % (11.6-14.6)
[2023-03-06] MEDS ORDERED: CITRIC ACID/SODIUM CITRATE SOLN 30ML UDC PO SCH (08:15)
[2023-03-06] MEDS: LEVETIRACETAM 500MG/5ML CUP GT SCH ×2 (08:20→17:00)
[2023-03-06] MEDS: DEXT 5%/0.9% NACL 1,000 ML IV SCH (08:36)
[2023-03-06 08:52] LABS: BG BASE EXCESS -9.4 mmol/L (-2.0-2.0); BG CARBOXYHEMOGLOBIN 0.3 % (0.5-1.5); BG DEOXYHEMOGLOBIN 0.9 % (0.0-5.0); BG FRACTION INSPIRED OXYGEN 32; BG HCO3 ACT 14.2 mmol/L (22.0-26.0); BG OXYGEN SATURATION 99.1 % (92.0-98.5); BG OXYHEMOGLOBIN 98.8 % (94.0-97.0); BG PCO2 23.6 mmHg (35.0-45.0); BG PH 7.396 (7.350-7.450); BG PO2 162.8 mmHg (75.0-100.0); BG SAMPLE SITE RIGHT BRACHIAL; BG TOTAL HEMOGLOBIN 9.1 g/dL (12.0-18.0); BG VENT MODE NASAL CANNULA
[2023-03-06 08:55] LABS: PLATELET ESTIMATE MARKEDLY DECREASED
[2023-03-06] MEDS: TOBRAMYCIN SULFATE 40MG/ML 2ML INH SCH ×2 (09:25→21:19)
[2023-03-06] MEDS ORDERED: SODIUM PHOS,M-BASIC-D-BASIC 20 MM in DEXT 5% WATER 243.3333 ML IV NR (10:00)
[2023-03-06] MEDS: MIDODRINE HCL 5MG TABLET NG SCH ×3 (10:58→23:00)
[2023-03-06] MEDS: SODIUM BICARBONATE 100 MEQ in SODIUM CHLORIDE 0.45% 1,000 ML IV SCH (10:59)
[2023-03-06] MEDS: VANCOMYCIN 1G PREMIX 200 ML IV SCH (10:59)
[2023-03-06] MEDS: INSULIN LISPRO 100 UNITS/ML SUBCUT SCH ×3 (12:00→18:00)
[2023-03-07] VITALS (95 sets, daily range): BP systolic 83–132; BP diastolic 49–81
[2023-03-07] MEDS: IPRATROPIUM/ALBUTEROL 0.5-3(2.5)MG/3ML NEB HHN SCH ×4 (01:08→21:24)
[2023-03-07] MEDS: MIDODRINE HCL 5MG TABLET NG SCH ×4 (05:00→23:47)
[2023-03-07] MEDS: BLOOD SUGAR DIAGNOSTIC STRIP TEST SCH ×5 (05:45→23:48)
[2023-03-07] MEDS: PHENYLEPHRINE 100 MG in DEXT 5% WATER 240 ML IV PRN ×3 (05:46→23:47)
[2023-03-07] MEDS: MEROPENEM 1,000 MG in SODIUM CHLORIDE 0.9% 100 ML IV SCH ×2 (05:48→18:16)
[2023-03-07] MEDS: PANTOPRAZOLE SODIUM 40 MG/VIAL IV SCH ×2 (05:48→18:16)
[2023-03-07 06:28] LABS: CHLORIDE 111 mEq/L (98-107)
[2023-03-07] MEDS: TOBRAMYCIN SULFATE 40MG/ML 2ML INH SCH (08:07)
[2023-03-07] MEDS ORDERED: MAGNESIUM 2 G PREMIX 50 ML IV NR (09:15)
[2023-03-07] MEDS: LEVETIRACETAM 500MG/5ML CUP GT SCH ×2 (09:30→18:16)
[2023-03-07] MEDS: DEXT 5%/0.9% NACL 1,000 ML IV SCH (09:30)
[2023-03-07] MEDS ORDERED: POTASSIUM CHLORIDE INJ 60 MEQ in DEXT 5% WATER 500 ML IV NR (10:00)
[2023-03-07 11:30] LABS: HEMATOCRIT. 24.2 % (36.0-48.0); HEMOGLOBIN. 8.1 g/dL (12.0-16.0); MEAN CORPUSCULAR HEMOGLOBIN 31.4 pg (28.0-32.0); MEAN PLATELET VOLUME 10.1 fl (7.4-10.4); PLATELET 63 x1000/uL (130-400); RED BLOOD CELL COUNT 2.58 mill/uL (4.2-5.4); RED CELL DISTRIBUTION WIDTH 19.4 % (11.6-14.6)
[2023-03-07 11:59] LABS: NUCLEATED RED BLOOD CELLS 3 /100 WBC; PLATELET ESTIMATE DECREASED
[2023-03-07] MEDS: INSULIN LISPRO 100 UNITS/ML SUBCUT SCH ×3 (12:00→18:00)
[2023-03-07] MEDS: METOCLOPRAMIDE HCL 10MG/2ML VIAL IV SCH ×3 (12:51→23:48)
[2023-03-07] MEDS: SODIUM BICARBONATE 100 MEQ in SODIUM CHLORIDE 0.45% 1,000 ML IV SCH (13:28)
[2023-03-07] MEDS: VANCOMYCIN 750MG PREMIX 150 ML IV SCH (15:15)
[2023-03-07] MEDS: IPRATROPIUM BROMIDE (0.02%) 0.5MG/2.5ML NEB HHN PRN (17:40)
[2023-03-07 18:22] LABS: BG BASE EXCESS -7.4 mmol/L (-2.0-2.0); BG CARBOXYHEMOGLOBIN 0.3 % (0.5-1.5); BG DEOXYHEMOGLOBIN 2.8 % (0.0-5.0); BG FRACTION INSPIRED OXYGEN 21; BG HCO3 ACT 15.7 mmol/L (22.0-26.0); BG METHEMOGLOBIN 0.6 % (0.0-1.5); BG OXYGEN SATURATION 97.2 % (92.0-98.5); BG OXYHEMOGLOBIN 96.3 % (94.0-97.0); BG PCO2 24.1 mmHg (35.0-45.0); BG PH 7.433 (7.350-7.450); BG PO2 100.2 mmHg (75.0-100.0); BG SAMPLE SITE LEFT RADIAL; BG TOTAL HEMOGLOBIN 8.5 g/dL (12.0-18.0); BG VENT MODE ROOM AIR
[2023-03-08] VITALS (97 sets, daily range): BP systolic 77–139; BP diastolic 28–83
[2023-03-08] MEDS: IPRATROPIUM/ALBUTEROL 0.5-3(2.5)MG/3ML NEB HHN SCH ×4 (02:51→19:57)
[2023-03-08] MEDS: ACETYLCYSTEINE 100MG/ML 10% VIAL 4ML INH SCH ×3 (02:51→14:37)
[2023-03-08] MEDS: MIDODRINE HCL 5MG TABLET NG SCH ×4 (05:01→23:21)
[2023-03-08] MEDS: MEROPENEM 1,000 MG in SODIUM CHLORIDE 0.9% 100 ML IV SCH (05:44)
[2023-03-08] MEDS: METOCLOPRAMIDE HCL 10MG/2ML VIAL IV SCH ×3 (05:44→17:34)
[2023-03-08] MEDS: PANTOPRAZOLE SODIUM 40 MG/VIAL IV SCH ×2 (05:44→17:34)
[2023-03-08] MEDS: INSULIN LISPRO 100 UNITS/ML SUBCUT SCH ×4 (05:45→17:14)
[2023-03-08] MEDS: BLOOD SUGAR DIAGNOSTIC STRIP TEST SCH ×3 (05:45→17:14)
[2023-03-08 07:02] LABS: CHLORIDE 110 mEq/L (98-107); HEMATOCRIT. 23.7 % (36.0-48.0); HEMOGLOBIN. 8.1 g/dL (12.0-16.0); MEAN CORPUSCULAR VOLUME 91.1 fL (81.0-99.0); MEAN PLATELET VOLUME 9.9 fl (7.4-10.4); PLATELET 66 x1000/uL (130-400); RED CELL DISTRIBUTION WIDTH 19.1 % (11.6-14.6)
[2023-03-08] MEDS ORDERED: POTASSIUM CHLORIDE INJ 40 MEQ in DEXT 5% WATER 250 ML IV ONE (08:00)
[2023-03-08] MEDS: LEVETIRACETAM 500MG/5ML CUP GT SCH ×2 (09:29→17:34)
[2023-03-08] MEDS: KCL 20MEQ/100ML X 2 FOR TOTAL KCL 40MEQ/200ML IV SCH ×2 (09:29→12:24)
[2023-03-08] MEDS: DEXT 5%/0.9% NACL 1,000 ML IV SCH (09:29)
[2023-03-08] MEDS: PHENYLEPHRINE 100 MG in DEXT 5% WATER 240 ML IV PRN ×2 (09:30→22:00)
[2023-03-08] MEDS ORDERED: DEXT 5%/0.9% NACL 1,000 ML IV SCH (11:00)
[2023-03-08] MEDS ORDERED: ALBUMIN HUMAN 12.5GM/50ML (25%) IV NR (11:00)
[2023-03-08 15:21] LABS: PLATELET ESTIMATE DECREASED
[2023-03-08] MEDS: VANCOMYCIN 750MG PREMIX 150 ML IV SCH (15:36)
[2023-03-08] MEDS: MEROPENEM 1000MG in NORMAL SALINE 100ML IV SCH (17:34)
[2023-03-08] MEDS: FAT EMULSIONS 500 ML IV SCH (21:02)
[2023-03-08] MEDS: TOTAL PARENTERAL NUTRITION 1,600 ML IV SCH (21:08)
[2023-03-08] MEDS: DEXT 5% IV SCH (21:59)
[2023-03-08] MEDS: WATER IV SCH (21:59)
[2023-03-08] MEDS: POLYMYXIN B SULFATE IV SCH (21:59)
[2023-03-09] VITALS (61 sets, daily range): BP systolic 81–147; BP diastolic 22–82
[2023-03-09] MEDS: ACETYLCYSTEINE 100MG/ML 10% VIAL 4ML INH SCH ×2 (00:44→02:00)
[2023-03-09] MEDS: IPRATROPIUM/ALBUTEROL 0.5-3(2.5)MG/3ML NEB HHN SCH ×4 (00:45→20:22)
[2023-03-09 05:22] LABS: BASOPHILS % 0.3 % (0.0-2.0); EOSINOPHILS % 1.8 % (0.0-5.0); HEMATOCRIT. 21.8 % (36.0-48.0); HEMOGLOBIN. 7.3 g/dL (12.0-16.0); MEAN CORPUSCULAR HEMOGLOBIN 31.3 pg (28.0-32.0); MEAN CORPUSCULAR VOLUME 93.5 fL (81.0-99.0); MEAN PLATELET VOLUME 10.4 fl (7.4-10.4); MONOCYTES % 12.9 % (2.0-8.0); PLATELET 76 x1000/uL (130-400); RED BLOOD CELL COUNT 2.33 mill/uL (4.2-5.4); RED CELL DISTRIBUTION WIDTH 19.2 % (11.6-14.6)
[2023-03-09 05:33] LABS: CHLORIDE 105 mEq/L (98-107)
[2023-03-09 05:54] LABS: PHOSPHORUS 0.7 mg/dL (2.5-4.9)
[2023-03-09] MEDS: INSULIN LISPRO 100 UNITS/ML SUBCUT SCH ×4 (06:00→18:56)
[2023-03-09] MEDS: MIDODRINE HCL 5MG TABLET NG SCH ×4 (06:09→23:24)
[2023-03-09] MEDS: MEROPENEM 1000MG in NORMAL SALINE 100ML IV SCH (06:11)
[2023-03-09] MEDS: PANTOPRAZOLE SODIUM 40 MG/VIAL IV SCH ×2 (06:11→18:54)
[2023-03-09] MEDS: METOCLOPRAMIDE HCL 10MG/2ML VIAL IV SCH ×4 (06:11→21:33)
[2023-03-09] MEDS: BLOOD SUGAR DIAGNOSTIC STRIP TEST SCH ×4 (06:12→18:27)
[2023-03-09] MEDS ORDERED: POTASSIUM PHOS,M-BASIC-D-BASIC 30 MMOL in DEXT 5% WATER 500 ML IV NR (09:00)
[2023-03-09] MEDS: LEVETIRACETAM 500MG/5ML CUP GT SCH ×2 (10:37→21:33)
[2023-03-09] MEDS: DEXT 5% IV SCH (10:39)
[2023-03-09] MEDS: WATER IV SCH (10:39)
[2023-03-09] MEDS: POLYMYXIN B SULFATE IV SCH (10:39)
[2023-03-09] MEDS ORDERED: ALBUMIN HUMAN 12.5GM/50ML (25%) IV NR (11:00)
[2023-03-09] MEDS: PHENYLEPHRINE 100 MG in DEXT 5% WATER 240 ML IV PRN (16:30)
[2023-03-09] MEDS: VANCOMYCIN 750MG PREMIX 150 ML IV SCH (16:45)
[2023-03-09] MEDS: CEFTAZIDIME/AVIBACTAM 1.25 GM in SODIUM CHLORIDE 0.9% 100 ML IV SCH ×2 (16:45→23:04)
[2023-03-09] MEDS: TOTAL PARENTERAL NUTRITION 1,600 ML IV SCH (21:36)
[2023-03-10] VITALS (90 sets, daily range): BP systolic 66–171; BP diastolic 23–99
[2023-03-10] MEDS: METOCLOPRAMIDE HCL 10MG/2ML VIAL IV SCH ×4 (00:34→17:15)
[2023-03-10] MEDS: BLOOD SUGAR DIAGNOSTIC STRIP TEST SCH ×4 (00:34→17:56)
[2023-03-10] MEDS: IPRATROPIUM/ALBUTEROL 0.5-3(2.5)MG/3ML NEB HHN SCH ×4 (02:00→14:42)
[2023-03-10] MEDS: PANTOPRAZOLE SODIUM 40 MG/VIAL IV SCH ×2 (05:53→17:15)
[2023-03-10] MEDS: CEFTAZIDIME/AVIBACTAM 1.25 GM in SODIUM CHLORIDE 0.9% 100 ML IV SCH ×3 (05:54→22:34)
[2023-03-10] MEDS: MIDODRINE HCL 5MG TABLET NG SCH ×3 (05:55→17:18)
[2023-03-10 06:35] LABS: CHLORIDE 102 mEq/L (98-107)
[2023-03-10 06:44] LABS: HEMATOCRIT. 25.9 % (36.0-48.0); HEMOGLOBIN. 8.7 g/dL (12.0-16.0); MEAN CORPUSCULAR HEMOGLOBIN 31.1 pg (28.0-32.0); MEAN CORPUSCULAR VOLUME 92.4 fL (81.0-99.0); MEAN PLATELET VOLUME 9.8 fl (7.4-10.4); PLATELET 71 x1000/uL (130-400); RED CELL DISTRIBUTION WIDTH 17.3 % (11.6-14.6)
[2023-03-10] MEDS: INSULIN LISPRO 100 UNITS/ML SUBCUT SCH ×4 (07:00→18:47)
[2023-03-10 07:18] LABS: PHOSPHORUS 0.7 mg/dL (2.5-4.9)
[2023-03-10] MEDS: LEVETIRACETAM 500MG/5ML CUP GT SCH ×2 (08:42→17:15)
[2023-03-10] MEDS: ACETYLCYSTEINE 100MG/ML 10% VIAL 4ML INH SCH ×3 (08:51→20:20)
[2023-03-10] MEDS ORDERED: MAGNESIUM 2 G PREMIX 50 ML IV SCH (09:00)
[2023-03-10] MEDS ORDERED: TOTAL PARENTERAL NUTRITION 1,600 ML IV SCH (09:00)
[2023-03-10] MEDS ORDERED: ALBUMIN HUMAN 12.5G/250ML (5%) IV NR (09:15)
[2023-03-10 09:46] LABS: PLATELET ESTIMATE DECREASED
[2023-03-10] MEDS ORDERED: POTASSIUM PHOS,M-BASIC-D-BASIC 30 MMOL in DEXT 5% WATER 500 ML IV SCH (11:00)
[2023-03-10] MEDS: ACETAMINOPHEN 650MG/20.3ML UDC PO PRN (17:16)
[2023-03-10] MEDS: TOTAL PARENTERAL NUTRITION 1,600 ML IV SCH (21:30)
[2023-03-11] VITALS (93 sets, daily range): BP systolic 97–160; BP diastolic 25–98
[2023-03-11] MEDS: MIDODRINE HCL 5MG TABLET NG SCH ×5 (00:18→23:00)
[2023-03-11] MEDS: METOCLOPRAMIDE HCL 10MG/2ML VIAL IV SCH ×4 (00:19→17:52)
[2023-03-11] MEDS: BLOOD SUGAR DIAGNOSTIC STRIP TEST SCH ×4 (00:19→17:45)
[2023-03-11] MEDS: INSULIN LISPRO 100 UNITS/ML SUBCUT SCH ×4 (00:20→18:11)
[2023-03-11] MEDS: PANTOPRAZOLE SODIUM 40 MG/VIAL IV SCH ×2 (05:45→17:52)
[2023-03-11 05:47] LABS: BASOPHILS % 0.1 % (0.0-2.0); EOSINOPHILS % 2.3 % (0.0-5.0); HEMATOCRIT. 25.6 % (36.0-48.0); HEMOGLOBIN. 8.6 g/dL (12.0-16.0); MEAN CORPUSCULAR HEMOGLOBIN 30.9 pg (28.0-32.0); MEAN CORPUSCULAR VOLUME 92.1 fL (81.0-99.0); MEAN PLATELET VOLUME 9.1 fl (7.4-10.4); MONOCYTES % 11.8 % (2.0-8.0); NEUTROPHILS % 77.8 % (40.0-76.0); PLATELET 80 x1000/uL (130-400); RED BLOOD CELL COUNT 2.78 mill/uL (4.2-5.4); RED CELL DISTRIBUTION WIDTH 17.2 % (11.6-14.6)
[2023-03-11 05:55] LABS: CHLORIDE 99 mEq/L (98-107)
[2023-03-11 06:01] LABS: PHOSPHORUS 2.6 mg/dL (2.5-4.9)
[2023-03-11] MEDS: CEFTAZIDIME/AVIBACTAM 1.25 GM in SODIUM CHLORIDE 0.9% 100 ML IV SCH ×3 (06:43→21:48)
[2023-03-11] MEDS: LEVETIRACETAM 500MG/5ML CUP GT SCH ×2 (08:49→17:52)
[2023-03-11] MEDS: POVIDONE-IODINE 10% TOPICAL SOLN 240ML TOP SCH (09:00)
[2023-03-11] MEDS ORDERED: ALBUMIN HUMAN 25GM/100ML (25%) IV NR (09:43)
[2023-03-11] MEDS: TOTAL PARENTERAL NUTRITION 1,600 ML IV SCH (21:31)
[2023-03-11] MEDS: ACETYLCYSTEINE 100MG/ML 10% VIAL 4ML INH SCH (22:00)
[2023-03-12] VITALS (62 sets, daily range): BP systolic 106–164; BP diastolic 51–122
[2023-03-12] MEDS: ACETYLCYSTEINE 100MG/ML 10% VIAL 4ML INH SCH ×4 (01:36→15:03)
[2023-03-12] MEDS: IPRATROPIUM/ALBUTEROL 0.5-3(2.5)MG/3ML NEB HHN SCH ×4 (01:36→20:46)
[2023-03-12] MEDS: METOCLOPRAMIDE HCL 10MG/2ML VIAL IV SCH ×4 (02:01→17:23)
[2023-03-12] MEDS: INSULIN LISPRO 100 UNITS/ML SUBCUT SCH ×4 (02:02→17:26)
[2023-03-12 06:05] LABS: BASOPHILS % 0.2 % (0.0-2.0); HEMATOCRIT. 24.7 % (36.0-48.0); HEMOGLOBIN. 8.2 g/dL (12.0-16.0); LYMPHOCYTES % 7.7 % (20.0-50.0); MEAN CORPUSCULAR HEMOGLOBIN 30.8 pg (28.0-32.0); MEAN CORPUSCULAR VOLUME 92.5 fL (81.0-99.0); MEAN PLATELET VOLUME 9.3 fl (7.4-10.4); MONOCYTES % 12.6 % (2.0-8.0); NEUTROPHILS % 78.5 % (40.0-76.0); PLATELET 103 x1000/uL (130-400); RED BLOOD CELL COUNT 2.67 mill/uL (4.2-5.4); RED CELL DISTRIBUTION WIDTH 16.7 % (11.6-14.6)
[2023-03-12 06:32] LABS: CHLORIDE 97 mEq/L (98-107)
[2023-03-12 06:36] LABS: PHOSPHORUS 2.4 mg/dL (2.5-4.9)
[2023-03-12] MEDS: MIDODRINE HCL 5MG TABLET NG SCH ×4 (06:44→23:13)
[2023-03-12] MEDS: PANTOPRAZOLE SODIUM 40 MG/VIAL IV SCH ×2 (06:45→17:23)
[2023-03-12] MEDS: CEFTAZIDIME/AVIBACTAM 1.25 GM in SODIUM CHLORIDE 0.9% 100 ML IV SCH ×3 (06:45→22:08)
[2023-03-12] MEDS: BLOOD SUGAR DIAGNOSTIC STRIP TEST SCH ×4 (06:45→17:26)
[2023-03-12] MEDS: LEVETIRACETAM 500MG/5ML CUP GT SCH ×2 (09:27→17:23)
[2023-03-12] MEDS: POVIDONE-IODINE 10% TOPICAL SOLN 240ML TOP SCH (09:29)
[2023-03-12] MEDS ORDERED: POTASSIUM CHLORIDE 20MEQ/PACKET NG NR (10:15)
[2023-03-12] MEDS ORDERED: MAGNESIUM 1 G PREMIX 100 ML IV NR (11:00)
[2023-03-12] MEDS ORDERED: IPRATROPIUM/ALBUTEROL 0.5-3(2.5)MG/3ML NEB HHN PRN (11:15)
[2023-03-12] MEDS ORDERED: POTASSIUM PHOS,M-BASIC-D-BASIC 15 MMOL in DEXT 5% WATER 245 ML IV ONE (13:30)
[2023-03-12] MEDS ORDERED: DIATR MEGLU/DIATRIZOATE SOLN 30ML PEG NR (18:00)
[2023-03-12] MEDS ORDERED: DIATR MEGLU/DIATRIZOATE SOLN 30ML ONE (18:11)
[2023-03-12] MEDS: FAT EMULSIONS 500 ML IV SCH (20:39)
[2023-03-12] MEDS: TOTAL PARENTERAL NUTRITION 1,600 ML IV SCH (20:43)
[2023-03-13] VITALS: BP 121/54
[2023-03-13] MEDS: METOCLOPRAMIDE HCL 10MG/2ML VIAL IV SCH ×4 (00:39→18:28)
[2023-03-13] MEDS: INSULIN LISPRO 100 UNITS/ML SUBCUT SCH ×4 (00:51→18:00)
[2023-03-13] MEDS: IPRATROPIUM/ALBUTEROL 0.5-3(2.5)MG/3ML NEB HHN SCH ×4 (01:11→20:45)
[2023-03-13] MEDS: ACETYLCYSTEINE 100MG/ML 10% VIAL 4ML INH SCH ×2 (01:12→14:51)
[2023-03-13 04:00] VITALS: BP 135/72
[2023-03-13] MEDS: MIDODRINE HCL 5MG TABLET NG SCH ×4 (04:53→22:31)
[2023-03-13] MEDS: BLOOD SUGAR DIAGNOSTIC STRIP TEST SCH ×4 (05:52→18:29)
[2023-03-13] MEDS: PANTOPRAZOLE SODIUM 40 MG/VIAL IV SCH ×2 (06:08→18:28)
[2023-03-13] MEDS: CEFTAZIDIME/AVIBACTAM 1.25 GM in SODIUM CHLORIDE 0.9% 100 ML IV SCH ×3 (06:38→22:30)
[2023-03-13 06:40] LABS: BASOPHILS % 0.7 % (0.0-2.0); EOSINOPHILS % 1.8 % (0.0-5.0); HEMATOCRIT. 24.5 % (36.0-48.0); HEMOGLOBIN. 8.5 g/dL (12.0-16.0); LYMPHOCYTES % 8.6 % (20.0-50.0); MEAN CORPUSCULAR HEMOGLOBIN 32.5 pg (28.0-32.0); MEAN CORPUSCULAR VOLUME 93.2 fL (81.0-99.0); MEAN PLATELET VOLUME 9.1 fl (7.4-10.4); MONOCYTES % 12.2 % (2.0-8.0); NEUTROPHILS % 76.7 % (40.0-76.0); PLATELET 124 x1000/uL (130-400); RED BLOOD CELL COUNT 2.63 mill/uL (4.2-5.4); RED CELL DISTRIBUTION WIDTH 16.9 % (11.6-14.6)
[2023-03-13 06:56] LABS: INR 1.1; PROTHROMBIN TIME 11.9 sec (9.6-11.0)
[2023-03-13 07:20] LABS: CHLORIDE 101 mEq/L (98-107)
[2023-03-13 07:26] LABS: PHOSPHORUS 2.7 mg/dL (2.5-4.9)
[2023-03-13 08:00] VITALS: BP 115/69
[2023-03-13] MEDS: POVIDONE-IODINE 10% TOPICAL SOLN 240ML TOP SCH (09:00)
[2023-03-13] MEDS: LEVETIRACETAM 500MG/5ML CUP GT SCH ×2 (09:36→18:28)
[2023-03-13] MEDS ORDERED: KCL 20MEQ/100ML PREMIX 100 ML IV NR (11:00)
[2023-03-13 12:00] VITALS: BP 100/62
[2023-03-13 16:00] VITALS: BP 111/59
[2023-03-13 20:00] VITALS: BP 125/68
[2023-03-13] MEDS: ACETAMINOPHEN 650MG/20.3ML UDC PO PRN (20:38)
[2023-03-13] MEDS: TOTAL PARENTERAL NUTRITION 1,600 ML IV SCH (21:41)
[2023-03-14] VITALS: BP 121/61
[2023-03-14] MEDS: METOCLOPRAMIDE HCL 10MG/2ML VIAL IV SCH ×4 (00:22→17:19)
[2023-03-14] MEDS: BLOOD SUGAR DIAGNOSTIC STRIP TEST SCH ×3 (00:22→11:20)
[2023-03-14] MEDS: INSULIN LISPRO 100 UNITS/ML SUBCUT SCH ×3 (00:50→11:47)
[2023-03-14] MEDS: IPRATROPIUM/ALBUTEROL 0.5-3(2.5)MG/3ML NEB HHN SCH ×4 (01:06→21:35)
[2023-03-14 04:00] VITALS: BP 97/49
[2023-03-14] MEDS: MIDODRINE HCL 5MG TABLET NG SCH ×3 (05:20→17:20)
[2023-03-14] MEDS: PANTOPRAZOLE SODIUM 40 MG/VIAL IV SCH (05:57)
[2023-03-14] MEDS: CEFTAZIDIME/AVIBACTAM 1.25 GM in SODIUM CHLORIDE 0.9% 100 ML IV SCH ×3 (05:57→21:35)
[2023-03-14 07:41] LABS: BASOPHILS % 1.3 % (0.0-2.0); EOSINOPHILS % 1.8 % (0.0-5.0); HEMATOCRIT. 25.5 % (36.0-48.0); HEMOGLOBIN. 8.7 g/dL (12.0-16.0); LYMPHOCYTES % 10.5 % (20.0-50.0); MEAN CORPUSCULAR HEMOGLOBIN 32.1 pg (28.0-32.0); MEAN CORPUSCULAR VOLUME 94.3 fL (81.0-99.0); MEAN PLATELET VOLUME 8.9 fl (7.4-10.4); MONOCYTES % 11.7 % (2.0-8.0); NEUTROPHILS % 74.7 % (40.0-76.0); PLATELET 148 x1000/uL (130-400); RED CELL DISTRIBUTION WIDTH 17.1 % (11.6-14.6)
[2023-03-14 07:49] LABS: CHLORIDE 102 mEq/L (98-107)
[2023-03-14] MEDS: LEVETIRACETAM 500MG/5ML CUP GT SCH ×2 (08:44→17:19)
[2023-03-14] MEDS: POVIDONE-IODINE 10% TOPICAL SOLN 240ML TOP SCH (08:49)
[2023-03-14 09:19] VITALS: BP 127/79
[2023-03-14] MEDS ORDERED: POTASSIUM CHLORIDE 20MEQ/PACKET PO NR (11:15)
[2023-03-14] MEDS: MAGNESIUM OXIDE 400MG TABLET PO SCH (12:01)
[2023-03-14 12:15] VITALS: BP 144/66
[2023-03-14 16:00] VITALS: BP 116/52
[2023-03-14 20:00] VITALS: BP 139/57
[2023-03-14] MEDS ORDERED: DEXTROSE 50% WATER 50ML SYRINGE IV PRN (21:30)
[2023-03-14] MEDS: TOTAL PARENTERAL NUTRITION 1,600 ML IV SCH (21:36)
[2023-03-14] MEDS: ACETAMINOPHEN 650MG/20.3ML UDC NG PRN (21:36)
[2023-03-15] VITALS: BP 121/86
[2023-03-15] MEDS: BLOOD SUGAR DIAGNOSTIC STRIP TEST SCH ×4 (00:17→18:12)
[2023-03-15] MEDS: INSULIN LISPRO 100 UNITS/ML SUBCUT SCH ×4 (00:17→18:09)
[2023-03-15] MEDS: MIDODRINE HCL 5MG TABLET NG SCH ×5 (00:18→23:24)
[2023-03-15] MEDS: METOCLOPRAMIDE HCL 10MG/2ML VIAL IV SCH ×4 (00:18→18:05)
[2023-03-15] MEDS: IPRATROPIUM/ALBUTEROL 0.5-3(2.5)MG/3ML NEB HHN SCH ×4 (00:32→19:41)
[2023-03-15 04:00] VITALS: BP 132/62
[2023-03-15] MEDS: CEFTAZIDIME/AVIBACTAM 1.25 GM in SODIUM CHLORIDE 0.9% 100 ML IV SCH ×3 (05:01→21:51)
[2023-03-15 05:36] LABS: BASOPHILS % 1.9 % (0.0-2.0); EOSINOPHILS % 0.6 % (0.0-5.0); HEMATOCRIT. 26.2 % (36.0-48.0); HEMOGLOBIN. 8.8 g/dL (12.0-16.0); LYMPHOCYTES % 11.4 % (20.0-50.0); MEAN CORPUSCULAR HEMOGLOBIN 31.6 pg (28.0-32.0); MEAN CORPUSCULAR VOLUME 93.7 fL (81.0-99.0); MEAN PLATELET VOLUME 8.4 fl (7.4-10.4); MONOCYTES % 14.7 % (2.0-8.0); NEUTROPHILS % 71.4 % (40.0-76.0); PLATELET 186 x1000/uL (130-400); RED CELL DISTRIBUTION WIDTH 17.2 % (11.6-14.6)
[2023-03-15 05:47] LABS: CHLORIDE 104 mEq/L (98-107)
[2023-03-15 08:00] VITALS: BP 118/59
[2023-03-15] MEDS: MAGNESIUM OXIDE 400MG TABLET PO SCH (08:50)
[2023-03-15] MEDS: POVIDONE-IODINE 10% TOPICAL SOLN 240ML TOP SCH (09:06)
[2023-03-15 12:00] VITALS: BP 143/78
[2023-03-15 16:00] VITALS: BP 135/87
[2023-03-15 20:00] VITALS: BP 128/78
[2023-03-15] MEDS ORDERED: FAT EMULSIONS 500 ML IV SCH (21:00)
[2023-03-15] MEDS: TOTAL PARENTERAL NUTRITION 1,600 ML IV SCH (21:51)
[2023-03-16] VITALS: BP 148/82
[2023-03-16] MEDS: BLOOD SUGAR DIAGNOSTIC STRIP TEST SCH ×4 (00:35→18:11)
[2023-03-16] MEDS: INSULIN LISPRO 100 UNITS/ML SUBCUT SCH ×4 (00:39→18:04)
[2023-03-16] MEDS: IPRATROPIUM/ALBUTEROL 0.5-3(2.5)MG/3ML NEB HHN SCH ×4 (00:49→22:23)
[2023-03-16] MEDS: ACETAMINOPHEN 650MG/20.3ML UDC NG PRN ×2 (01:01→07:04)
[2023-03-16 04:00] VITALS: BP 123/74
[2023-03-16] MEDS: MIDODRINE HCL 5MG TABLET NG SCH ×4 (04:56→22:49)
[2023-03-16] MEDS: CEFTAZIDIME/AVIBACTAM 1.25 GM in SODIUM CHLORIDE 0.9% 100 ML IV SCH ×3 (05:14→22:27)
[2023-03-16] MEDS: METOCLOPRAMIDE HCL 10MG/2ML VIAL IV SCH ×4 (05:14→18:03)
[2023-03-16 07:43] LABS: HEMATOCRIT. 26.2 % (36.0-48.0); HEMOGLOBIN. 8.8 g/dL (12.0-16.0); MEAN CORPUSCULAR HEMOGLOBIN 31.5 pg (28.0-32.0); MEAN PLATELET VOLUME 8.4 fl (7.4-10.4); PLATELET 220 x1000/uL (130-400); RED BLOOD CELL COUNT 2.79 mill/uL (4.2-5.4); RED CELL DISTRIBUTION WIDTH 16.8 % (11.6-14.6)
[2023-03-16 08:00] VITALS: BP 115/54
[2023-03-16 08:05] LABS: CHLORIDE 103 mEq/L (98-107)
[2023-03-16 08:14] LABS: PHOSPHORUS 2.7 mg/dL (2.5-4.9)
[2023-03-16] MEDS: POVIDONE-IODINE 10% TOPICAL SOLN 240ML TOP SCH (09:52)
[2023-03-16] MEDS: MAGNESIUM OXIDE 400MG TABLET PO SCH (09:52)
[2023-03-16 12:00] VITALS: BP 125/65
[2023-03-16 13:33] LABS: PLATELET ESTIMATE NORMAL
[2023-03-16 16:00] VITALS: BP 138/58
[2023-03-16 20:00] VITALS: BP 127/75
[2023-03-16] MEDS: TOTAL PARENTERAL NUTRITION 1,600 ML IV SCH (22:39)
[2023-03-17] VITALS: BP 158/80
[2023-03-17] MEDS: METOCLOPRAMIDE HCL 10MG/2ML VIAL IV SCH (00:14)
[2023-03-17] MEDS: BLOOD SUGAR DIAGNOSTIC STRIP TEST SCH (00:18)
[2023-03-17] MEDS: INSULIN LISPRO 100 UNITS/ML SUBCUT SCH (00:29)
[2023-03-17] MEDS: IPRATROPIUM/ALBUTEROL 0.5-3(2.5)MG/3ML NEB HHN SCH (02:25)
[2023-03-17] MEDS: ACETAMINOPHEN 650MG/20.3ML UDC NG PRN (03:28)
== END 2023-03-17 04:03 | DRG 720 ==
LOC: ER 16:16 → EDBEDREQ 18:46 → CVICU 19:35 → EDBEDREQTM 19:43 → EDBEDREQ 19:43 → 7EST 03-12 23:58
PROVIDERS: ADMIT Internal Medicine; ATTEND Internal Medicine
PROC: 02HV33Z Insertion of Infusion Device into Superior Vena Cava, Percutaneous Approach (ICD-10-PCS; 2023-02-13)
PROC: B548ZZA Ultrasonography of Superior Vena Cava, Guidance (ICD-10-PCS; 2023-02-13)
PROC: 3E02340 Introduction of Influenza Vaccine into Muscle, Percutaneous Approach (ICD-10-PCS; 2023-02-13)
PROC: 5A1945Z Respiratory Ventilation, 24-96 Consecutive Hours (ICD-10-PCS; principal; 2023-02-14)
PROC: 30233N1 Transfusion of Nonautologous Red Blood Cells into Peripheral Vein, Percutaneous Approach (ICD-10-PCS; 2023-02-14)
PROC: 0BH17EZ Insertion of Endotracheal Airway into Trachea, Via Natural or Artificial Opening (ICD-10-PCS; 2023-02-14)
PROC: 30233N1 Transfusion of Nonautologous Red Blood Cells into Peripheral Vein, Percutaneous Approach (ICD-10-PCS; 2023-02-15)
PROC: 30233N1 Transfusion of Nonautologous Red Blood Cells into Peripheral Vein, Percutaneous Approach (ICD-10-PCS; 2023-02-20)
PROC: 30233N1 Transfusion of Nonautologous Red Blood Cells into Peripheral Vein, Percutaneous Approach (ICD-10-PCS; 2023-02-22)
PROC: 30233N1 Transfusion of Nonautologous Red Blood Cells into Peripheral Vein, Percutaneous Approach (ICD-10-PCS; 2023-02-25)
PROC: 30233N1 Transfusion of Nonautologous Red Blood Cells into Peripheral Vein, Percutaneous Approach (ICD-10-PCS; 2023-02-26)
PROC: 30233N1 Transfusion of Nonautologous Red Blood Cells into Peripheral Vein, Percutaneous Approach (ICD-10-PCS; 2023-03-01)
PROC: 06H033Z Insertion of Infusion Device into Inferior Vena Cava, Percutaneous Approach (ICD-10-PCS; 2023-03-08)
PROC: B549ZZA Ultrasonography of Inferior Vena Cava, Guidance (ICD-10-PCS; 2023-03-08)
PROC: 30233N1 Transfusion of Nonautologous Red Blood Cells into Peripheral Vein, Percutaneous Approach (ICD-10-PCS; 2023-03-09)
DX: A41.59 Other Gram-negative sepsis (principal); N17.0 Acute kidney failure with tubular necrosis; J96.01 Acute respiratory failure with hypoxia; R65.21 Severe sepsis with septic shock; J69.0 Pneumonitis due to inhalation of food and vomit; G93.40 Encephalopathy, unspecified; E87.20 Acidosis, unspecified; J15.1 Pneumonia due to Pseudomonas; D62 Acute posthemorrhagic anemia; K80.20 Calculus of gallbladder without cholecystitis without obstruction; N39.0 Urinary tract infection, site not specified; E78.5 Hyperlipidemia, unspecified; G40.909 Epilepsy, unspecified, not intractable, without status epilepticus; R13.10 Dysphagia, unspecified; E87.0 Hyperosmolality and hypernatremia; E87.6 Hypokalemia; E11.42 Type 2 diabetes mellitus with diabetic polyneuropathy; E87.1 Hypo-osmolality and hyponatremia; M20.42 Other hammer toe(s) (acquired), left foot; M20.41 Other hammer toe(s) (acquired), right foot; L89.899 Pressure ulcer of other site, unspecified stage; E83.42 Hypomagnesemia; K21.9 Gastro-esophageal reflux disease without esophagitis; L89.156 Pressure-induced deep tissue damage of sacral region; K94.23 Gastrostomy malfunction; E83.39 Other disorders of phosphorus metabolism; K56.609 Unspecified intestinal obstruction, unspecified as to partial versus complete obstruction; Z16.24 Resistance to multiple antibiotics; Z16.19 Resistance to other specified beta lactam antibiotics; K57.91 Diverticulosis of intestine, part unspecified, without perforation or abscess with bleeding; M19.90 Unspecified osteoarthritis, unspecified site; I10 Essential (primary) hypertension; Z74.01 Bed confinement status; I69.320 Aphasia following cerebral infarction; Z79.4 Long term (current) use of insulin; Z90.49 Acquired absence of other specified parts of digestive tract; Z79.899 Other long term (current) drug therapy
CPT/HCPCS: 31500; 36415; 36573; 36600; 71045; 74018; 74176; 74250; 78278; 80048; 80053; 80061; 80076; 80202; 81003; 82040; 82270; 82375; 82533; 82550; 82607; 82728; 82746; 82805; 82962; 83036; 83540; 83550; 83605; 83735; 83930; 84075; 84100; 84132; 84134; 84145; 84443; 84450; 84460; 84478; 84484; 85014; 85018; 85025; 85027; 85044; 86850; 86900; 86920; 87015; 87045; 87070; 87077; 87186; 87427; 87449; 93005; 93306; 93970; 94002; 94003; 94640; 99285; A6261; A9560; C1725; C9113; J0278; J0692; J1815; J2060; J2185; J2270; J2354; J2370; J2543; J2765; J2930; J3260; J3370; J3475; J3480; J3490; J7030; J7040; J7042; J7050; J7060; J7070; J7608; P9016; P9041; P9047; Q9963